=== PATIENT | male | born 1940 | race Caucasian/White ===

== ENCOUNTER 2016-10-26 16:59 | Inpatient (IN) | payer MEDICAID, OTHER ==
[2016-10-26] MEDS ORDERED: Sodium Chloride 0.9% 500 ML IV STA (17:28)
--- NOTE | 2016-10-26 17:33 | ED PDOC ---
Arrival/HPI - General Chief Complaint: GI Problem Time Seen by Provider: 10/26/16 17:19 Historian: Patient, Family - History of Present Illness Narrative History of Present Illness (Text): 10/26/16 17:22 Eric Abdullahi is a 75 year old, whose past medical history includes hypertension and hyperlipidemia, who presents to the Emergency department, accompanied by his family member, with complains of vomiting for the past few days. Family member reports patient has been vomiting everything he eats and also has diarrhea with dark green stool. Patient also notes feeling drowsiness. Patient denies shortness of breath, abdominal pain, headache, fever, chills cough, diaphoresis, jaw pain, back pain, lower extremity pain/swelling, or other complaints. PMD: Dr. Nilesh Farfan Time/Duration: Other (a few days) Symptom Onset: Gradual Symptom Course: Unchanged Modifying Factors (Text): Patient vomits everything he eats Context: Home Associated Symptoms (Text): dark green stool and drowsiness Past Medical History - Provider Review Nursing Documentation Reviewed: Yes - Cardiac Hx Cardiac Disorders: Yes Hx Hypertension: Yes - Endocrine/Metabolic Hx Endocrine Disorders: Yes Hx Diabetes Mellitus Type 2: Yes - Musculoskeletal/Rheumatological Hx Gout: Yes - Genitourinary/Gynecological Hx Prostate Problems: Yes - Psychiatric Hx Substance Use: No - Surgical History Hx Appendectomy: Yes Hx Orthopedic Surgery: Yes Family/Social History - Physician Review Nursing Documentation Reviewed: Yes Family/Social History: Unknown Family HX Smoking Status: Never Smoked Hx Alcohol Use: No Hx Substance Use: No Allergies/Home Meds Allergies/Adverse Reactions: Allergies No Known Allergies Allergy (Verified 10/26/16 17:13) Home Medications: Home Meds Medication Instructions Recorded Confirmed Allopurinol [Zyloprim] 100 mg PO DAILY 10/26/16 10/26/16 Alogliptin Wallace/Metformin HCl 1 each PO DAILY 10/26/16 10/26/16 [Alogliptin-Metformin 12.5-1000] Aspirin [Adult Low Dose Aspirin EC] 81 mg PO DAILY 10/26/16 10/26/16 Atorvastatin [Lipitor] 40 mg PO DAILY 10/26/16 10/26/16 Empagliflozin [Jardiance] 25 mg PO DAILY 10/26/16 10/26/16 Ergocalciferol (Vitamin D2) 50,000 unit PO QWK 10/26/16 10/26/16 [Vitamin D2] Glimepiride [Amaryl] 4 mg PO DAILY 10/26/16 10/26/16 HCTZ/Losartan Potassium [Hyzaar 1 tab PO DAILY 10/26/16 10/26/16 12.5 MG-50 MG] Memantine [Namenda] 10 mg PO DAILY 10/26/16 10/26/16 Edmond-3 Fatty Acids/Fish Oil [Fish 1,000 mg PO DAILY 10/26/16 10/26/16 Oil 1,000 mg Capsule] Tamsulosin [Flomax] 0.4 mg PO DAILY 10/26/16 10/26/16 Review of Systems - Physician Review All systems were reviewed & negative as marked: Yes - Review of Systems Constitutional: Other (drowsiness). absent: Fevers Respiratory: absent: SOB Cardiovascular: absent: Chest Pain Gastrointestinal: Stool Changes (dark green stool), Diarrhea, Nausea, Vomiting. absent: Abdominal Pain, Hematemesis Neurological: absent: Headache Physical Exam Vital Signs Temp Pulse Resp BP Pulse Ox 10/26/16 20:57 68 17 140/84 97 10/26/16 19:23 88 17 136/72 97 10/26/16 17:13 99 F 71 16 165/69 H 95 Temperature: Afebrile Blood Pressure: Hypertensive Pulse: Regular Respiratory Rate: Normal Appearance: Positive for: Well-Appearing, Non-Toxic, Comfortable Pain Distress: None Mental Status: Positive for: Alert and Oriented X 3 - Systems Exam Head: Present: Atraumatic, Normocephalic Pupils: Present: PERRL Extroacular Muscles: Present: EOMI Conjunctiva: Present: Normal Mouth: Present: Moist Mucous Membranes Neck: Present: Normal Range of Motion Respiratory/Chest: Present: Clear to Auscultation, Good Air Exchange. No: Respiratory Distress, Accessory Muscle Use Cardiovascular: Present: Regular Rate and Rhythm, Normal S1, S2. No: Murmurs Abdomen: Present: Tenderness (mild non-focal abdominal tenderness), Normal Bowel Sounds. No: Distention, Peritoneal Signs Rectal: Present: Other (brown stool guaiac negative (-) [place] Belt: Criselda Yesika) Back: Present: Normal Inspection Upper Extremity: Present: Normal Inspection. No: Cyanosis, Edema Lower Extremity: Present: Normal Inspection. No: Edema Neurological: Present: GCS=15, CN II-XII Intact, Speech Normal Skin: Present: Warm, Dry, Normal Color. No: Rashes Psychiatric: Present: Alert, Oriented x 3, Normal Insight, Normal Concentration Medical Decision Making ED Course and Treatment: 10/26/16 17:22 Impression: 75 year old male with vomiting and dark stool diarrhea. Plan: -- EKG -- Chest X-ray -- Labs -- Urinalysis -- Protonix, Zofran, and Sodium Chloride -- Reassess and disposition Progress Notes:suspected gastro, r/o gi bleed. EKG: Ordered, reviewed, and independently interpreted the EKG. Rate : 73 BPM Rhythm : NSR Interpretation :right Bundle Branch Block. Comparison : No previous EKG for comparison. 10/26/16 19:42 Case discussed with request patient to start on Dextrose with bicarb drip Case also discussed with Dr. Cedeno who accepts patient to ICU. 10/26/16 20:31 pt with noted new onset renal failue, hyperkalemia, dextrose, insulin, calcium, bicarb given. pt reports has been making urine at home, garrett order placed. 10/26/16 20:32 - Lab Interpretations Lab Results: 10/26/16 18:05 10/26/16 18:05 Lab Results 10/26/16 18:05: Sodium 138, Potassium 6.8 H*, Chloride 97 L, Carbon Dioxide 14 L , Anion Gap 34 H, BUN 90 H, Creatinine 11.6 H*, Est GFR ( Amer) 5, Est GFR (Non-Af Amer) 4, Random Glucose 28 L*, Calcium 9.5, Total Bilirubin 0.5, AST 27, ALT 21, Alkaline Phosphatase 53, Lactate Dehydrogenase 369, Total Creatine Kinase 199, Troponin I 0.03, Total Protein 8.2, Albumin 4.7, Globulin 3.5, Albumin/Globulin Ratio 1.3, Amylase 208 H, Lipase 264 10/26/16 18:05: PT 11.3, INR 1.05, APTT 30.3 10/26/16 18:05: WBC 10.5, RBC 4.53, Hgb 12.2 L, Hct 37.0 L, MCV 81.7, MCH 26.9, MCHC 33.0, RDW 15.8 H, Plt Count 206, MPV 11.3 H, Gran % 81.4 H, Lymph % (Auto) 13.5 L, [place] % (Auto) 5.1, Eos % (Auto) 0.0 L, Baso % (Auto) 0.0, Gran # 8.54 H , Lymph # 1.4, [place] # 0.5, Eos # 0.0, Baso # 0.00 I have reviewed the lab results: Yes - RAD Interpretation Radiology Orders: 10/26/16 19:13 CXR [CHEST PORTABLE] [RAD] Stat - EKG Interpretation Interpreted by ED Physician: Yes Type: 12 lead EKG - Medication Orders Current Medication Orders: Acetaminophen (Tylenol 325mg Tab) 650 mg PO Q6H PRN PRN Reason: Pain, Mild (1-3) Last Admin: 10/27/16 09:00 Dose: 650 mg Re-Assess: MAR Pain/Vitals Document 10/27/16 10:00 MMA (Rec: 10/27/16 12:49 MMA [id number]) Pain Reassessment Is This A Pain ReAssessment? Yes Sleep Is patient sleeping during reassessment? Yes Pain Scale Used Pain Scale Used Laurita Allopurinol (Zyloprim) 100 mg PO DAILY [facility] Last Admin: 10/28/16 09:16 Dose: 100 mg Aspirin (Ecotrin) 81 mg PO DAILY [facility] Last Admin: 10/28/16 09:17 Dose: 81 mg Atorvastatin Calcium (Lipitor) 40 mg PO DAILY [facility] Last Admin: 10/28/16 09:16 Dose: 40 mg Ergocalciferol (Drisdol 50,000 Intl Units Cap) 1 cap PO QWK [facility] Last Admin: 10/28/16 09:17 Dose: 1 cap Heparin Sodium (Porcine) (Heparin) 5,000 units SC Q12 JET PRN Reason: Protocol Last Admin: 10/28/16 21:48 Dose: 5,000 units Sodium Chloride (Sodium Chloride 0.9%) 1,000 mls @ 150 mls/hr IV .[id number] [facility] Last Admin: 10/29/16 02:50 Dose: 150 mls/hr Insulin Human Lispro (Humalog Low) 0 units SC ACHS JET PRN Reason: Protocol Last Admin: 10/28/16 22:06 Dose: Not Given Non-Admin Reason: Blood Sugar Parameter Labetalol HCl (Trandate) 100 mg PO TID PRN PRN Reason: Systolic Blood Pressure Last Admin: 10/27/16 09:01 Dose: 100 mg Memantine (Namenda) 10 mg PO DAILY [facility] Last Admin: 10/28/16 09:17 Dose: 10 mg Odisb-3-Cozx Ethyl Esters (Lovaza) 1 gm PO DAILY [facility] Last Admin: 10/28/16 09:16 Dose: 1 gm Pantoprazole Sodium (Protonix Ec Tab) 40 mg PO 0600 [facility] Last Admin: 10/29/16 05:53 Dose: 40 mg Tamsulosin HCl (Flomax) 0.4 mg PO DAILY [facility] Last Admin: 10/28/16 09:16 Dose: 0.4 mg Discontinued Medications Calcium Gluconate (Calcium Gluconate Iv) 1,000 mg IVP ONCE ONE Stop: 10/26/16 18:50 Last Admin: 10/26/16 19:11 Dose: 1,000 mg Dextrose (Dextrose 50% Inj) 50 ml IVP STAT STA Stop: 10/26/16 18:49 Last Admin: 10/26/16 19:10 Dose: 50 ml Dextrose (Dextrose 50% Inj) 50 ml IVP STAT STA Stop: 10/26/16 19:07 Last Admin: 10/26/16 19:17 Dose: 50 ml Dextrose (Dextrose 50% Inj) 50 ml IVP ONCE ONE Stop: 10/26/16 23:23 Last Admin: 10/26/16 23:53 Dose: 50 ml Dextrose (Dextrose 50% Inj) 50 ml IVP ONCE ONE Stop: 10/27/16 02:25 Last Admin: 10/27/16 02:29 Dose: 50 ml Dextrose (Dextrose 50% Inj) 50 ml IVP ONCE ONE Stop: 10/27/16 06:05 Last Admin: 10/27/16 06:10 Dose: 50 ml Dextrose (Dextrose 50% Inj) 50 ml IVP ONCE ONE Stop: 10/27/16 09:45 Last Admin: 10/27/16 09:55 Dose: 50 ml Sodium Chloride (Sodium Chloride 0.9%) 500 mls @ 999 mls/hr IV .Q31M STA Stop: 10/26/16 17:58 Last Admin: 10/26/16 18:11 Dose: 999 mls/hr Sodium Bicarbonate 150 meq/ (Dextrose) 1,150 mls @ 75 mls/hr IV .[id number] [facility] Last Admin: 10/28/16 03:30 Dose: 75 mls/hr Sodium Chloride (Sodium Chloride 0.9%) 1,000 mls @ 100 mls/hr IV .Q10H [facility] Last Admin: 10/26/16 23:59 Dose: 100 mls/hr Dextrose/Sodium Chloride (Dextrose 5%/0.45% Ns 1000 Ml) 1,000 mls @ 100 mls/hr IV .Q10H [facility] Last Admin: 10/28/16 03:30 Dose: 100 mls/hr Magnesium Sulfate 2 gm/ Sodium (Chloride) 104 mls @ 102 mls/hr IVPB ONCE ONE Stop: 10/27/16 13:51 Last Admin: 10/27/16 13:36 Dose: 102 mls/hr Sodium Chloride (Sodium Chloride 0.9%) 1,000 mls @ 100 mls/hr IV .Q10H [facility] Insulin Human Regular (Humulin R) 5 units SC STAT STA Stop: 10/26/16 18:49 Last Admin: 10/26/16 19:11 Dose: 5 units Morphine Sulfate (Morphine) 0.5 mg IVP ONCE ONE Stop: 10/27/16 03:04 Last Admin: 10/27/16 03:15 Dose: 0.5 mg Re-Assess: [place] Pain Assessment Document 10/27/16 04:15 PD (Rec: 10/27/16 06:06 PD [id number]) Pain Reassessment Is this a pain reassessment? Yes Sleep Is patient sleeping during reassessment? Yes Ondansetron HCl (Zofran Inj) 4 mg IVP STAT STA Stop: 10/26/16 17:29 Last Admin: 10/26/16 18:10 Dose: 4 mg Pantoprazole Sodium (Protonix Inj) 40 mg IVP STAT STA Stop: 10/26/16 17:29 Last Admin: 10/26/16 18:10 Dose: 40 mg Pantoprazole Sodium (Protonix Ec Tab) 40 mg PO 0600 [facility] Pantoprazole Sodium (Protonix Inj) 40 mg IVP DAILY [facility] Last Admin: 10/28/16 09:15 Dose: 40 mg Sodium Bicarbonate (Sodium Bicarbonate (8.4%) 50 Meq Syringe) 50 meq IVP ONCE ONE Stop: 10/26/16 18:50 Last Admin: 10/26/16 19:16 Dose: 50 meq Sodium Polystyrene Sulfonate (Kayexalate Oral Susp) 30 gm PO STAT STA Stop: 10/26/16 20:38 Last Admin: 10/26/16 20:57 Dose: 30 gm - Scribe Statement The provider has reviewed the documentation as recorded by the Scribe 10/26/2016 Criselda Wangdua Provider Scribe Attestation: All medical record entries made by the Scribe were at my direction and personally dictated by me. I have reviewed the chart and agree that the record accurately reflects my personal performance of the history, physical exam, medical decision making, and the department course for this patient. I have also personally directed, reviewed, and agree with the discharge instructions and disposition. Disposition/Present on Arrival - Present on Arrival Any Indicators Present on Arrival: No History of DVT/PE: No History of Uncontrolled Diabetes: No Urinary Catheter: No History of Decub. Ulcer: No History Surgical Site Infection Following: None - Disposition Have Diagnosis and Disposition been Completed?: Yes Diagnosis: Renal failure, Hyperkalemia Disposition: HOSPITALIZED Disposition Time: 06:00 Condition: STABLE
[2016-10-26 18:27] LABS: GRAN # 8.54 (1.4-6.5); GRAN % 81.4 % (50.0-68.0); HEMOGLOBIN 12.2 gm/dL (14.0-18.0); LYMPH # 1.4 (1.2-3.4); LYMPH % 13.5 % (22.0-35.0); MEAN CELL VOLUME 81.7 fL (80.0-105.0); MEAN CORPUSCULAR HEMOGLOBIN 26.9 pg (25.0-35.0); MEAN PLATELET VOLUME 11.3 fl (7.0-11.0); MONO # 0.5 (0.1-0.6); MONO % 5.1 % (1.0-6.0); PLATELET COUNT 206 10^3/uL (120.0-450.0); RBC 4.53 10^6/uL (3.5-6.1); RED CELL DISTRIBUTION WIDTH 15.8 % (11.5-14.5); WHITE BLOOD COUNT 10.5 10^3/ul (4.5-11.0)
[2016-10-26 18:35] LABS: INR 1.05 (0.93-1.08); PARTIAL THROMBOPLASTIN TIME 30.3 Seconds (23.7-30.8); PROTHROMBIN TIME 11.3 Seconds (9.9-11.8)
[2016-10-26 18:39] LABS: ALB/GLOB RATIO 1.3 (1.1-1.8); ALBUMIN 4.7 g/dL (3.0-4.8); CALCIUM 9.5 mg/dL (8.4-10.5)
[2016-10-26] MEDS ORDERED: Dextrose 50% SYRINGE Inj (50 ml) IVP STA ×2 (18:48→19:06)
[2016-10-26] MEDS ORDERED: Insulin Regular 1 UNITS/0.01 ML ML SC STA (18:48)
[2016-10-26] MEDS ORDERED: Sodium Bicarbonate (8.4%) 50 Meq Syringe IVP ONE (18:49)
[2016-10-26 18:50] LABS: TROPONIN I 0.03 ng/mL
--- NOTE | 2016-10-26 20:27 | CP.PCM.HP ---
History of Present Illness - History of Present Illness History of Present Illness: 75 yo Male with pmhx of HTN, DM type 2, HLD, BPH presents for Past Patient History - Past Social History Smoking Status: Never Smoked - CARDIAC Hx Cardiac Disorders: Yes Hx Hypertension: Yes - ENDOCRINE/METABOLIC Hx Endocrine Disorders: Yes Hx Diabetes Mellitus Type 2: Yes - MUSCULOSKELETAL/RHEUMATOLOGICAL Hx Gout: Yes - GENITOURINARY/GYNECOLOGICAL Hx Prostate Problems: Yes - PSYCHIATRIC Hx Substance Use: No - SURGICAL HISTORY Hx Appendectomy: Yes Hx Orthopedic Surgery: Yes Meds Allergies/Adverse Reactions: Allergies Allergy/AdvReac Type Severity Reaction Status Date / Time No Known Allergies Allergy Verified 10/26/16 17:13 Results - Vital Signs Recent Vital Signs: Last Vital Signs Temp 99 F 10/26/16 17:13 Pulse 88 10/26/16 19:23 Resp 17 10/26/16 19:23 BP 136/72 10/26/16 19:23 Pulse Ox 97 10/26/16 19:23 - Labs Result Diagrams: 10/26/16 18:05 10/26/16 18:05
[2016-10-26 20:37] LABS: URINE APPEARANCE SLIGHT-CLOUDY (CLEAR); URINE BILIRUBIN NEGATIVE (NEGATIVE); URINE BLOOD LARGE (NEGATIVE); URINE COLOR YELLOW (YELLOW); URINE GLUCOSE (UA) 250 mg/dL (NEGATIVE); URINE LEUKOCYTE ESTERASE NEGATIVE Leu/uL (NEGATIVE); URINE NITRATE NEGATIVE (NEGATIVE); URINE PROTEIN 30 mg/dL (<30 mg/dL); URINE UROBILINOGEN 0.2 E.U./dL (<1 E.U./dL)
[2016-10-26] MEDS ORDERED: Sod Polystyrene Sulf 15 gm/60 ml Oral Susp PO STA (20:37)
[2016-10-26] MEDS: Sodium Bicarbonate 8.4% 150 MEQ in Dextrose 5% In Water 1,000 ML IV SCH (20:42)
[2016-10-26 21:02] LABS: URINE AMORPHOUS SEDIMENT FEW
[2016-10-26 21:19] LABS: CREATININE,RANDOM URINE 31 mg/dL
[2016-10-26 22:13] VITALS: BMI 29.6
[2016-10-26] MEDS ORDERED: Sodium Chloride 0.9% 1,000 ML IV SCH (23:16)
[2016-10-26] MEDS ORDERED: Dextrose 50% SYRINGE Inj (50 ml) IVP ONE (23:22)
[2016-10-27] MEDS ORDERED: Dextrose 50% SYRINGE Inj (50 ml) IVP ONE ×3 (02:24→09:44)
[2016-10-27] MEDS ORDERED: Morphine 2 mg/ml ISec IVP ONE (03:03)
[2016-10-27] MEDS ORDERED: Pantoprazole 40 mg EC Tab PO SCH (06:00)
--- NOTE | 2016-10-27 06:05 | CP.PCM.HP ---
History of Present Illness - History of Present Illness History of Present Illness: The patient is a 75 year old [place] man with a history of dementia, HTN and NIDDM who presents with several days of nausea, non-bloody, non-bilious vomiting and water diarrhea. In the ED he was found to have an elevated BUN and creatinine and hyperkalemia. He denies any previous history of chronic kidney disease, or recent urinary problems. He also denies any chest pain, SOB, abdominal pain or F/C. Present on Admission - Present on Admission Any Indicators Present on Admission: No Review of Systems - Review of Systems All systems: reviewed and no additional remarkable complaints except - Constitutional Constitutional: As Per HPI - EENT Eyes: As Per HPI Nose/Mouth/Throat: As Per HPI - Cardiovascular Cardiovascular: As Per HPI - Respiratory Respiratory: As Per HPI - Gastrointestinal Gastrointestinal: As Per HPI - Genitourinary Genitourinary: As Per HPI - Musculoskeletal Musculoskeletal: As Per HPI - Neurological Neurological: As Per HPI Past Patient History - Past Social History Smoking Status: Never Smoked - CARDIAC Hx Cardiac Disorders: Yes Hx Hypertension: Yes - ENDOCRINE/METABOLIC Hx Endocrine Disorders: Yes Hx Diabetes Mellitus Type 2: Yes - MUSCULOSKELETAL/RHEUMATOLOGICAL Hx Falls: Yes Hx Gout: Yes - GENITOURINARY/GYNECOLOGICAL Hx Prostate Problems: Yes - PSYCHIATRIC Hx Substance Use: No - SURGICAL HISTORY Hx Appendectomy: Yes Hx Orthopedic Surgery: Yes Meds Allergies/Adverse Reactions: Allergies Allergy/AdvReac Type Severity Reaction Status Date / Time No Known Allergies Allergy Verified 10/26/16 17:13 Physical Exam - Constitutional Appears: Well - Head Exam Head Exam: ATRAUMATIC, NORMAL INSPECTION, NORMOCEPHALIC - Eye Exam Eye Exam: EOMI, Normal appearance, PERRL - ENT Exam ENT Exam: Mucous Membranes Dry - Neck Exam Neck exam: Positive for: Normal Inspection - Respiratory Exam Respiratory Exam: Clear to Auscultation Bilateral, NORMAL BREATHING PATTERN - Cardiovascular Exam Cardiovascular Exam: REGULAR RHYTHM - Neurological Exam Neurological exam: Alert, CN II-XII Intact, Normal Gait, Oriented x3, Reflexes Normal Results - Vital Signs Recent Vital Signs: Last Vital Signs Temp 97.8 F 10/26/16 21:55 Pulse 64 10/27/16 06:00 Resp 20 10/27/16 06:00 BP 125/68 10/27/16 06:00 Pulse Ox 98 10/27/16 06:00 - Labs Result Diagrams: 10/27/16 05:30 10/27/16 05:30 Labs: Laboratory Results - last 24 hr 10/26/16 10/26/16 10/26/16 20:00 20:50 23:15 POC Glucose (mg/dL) 69 Urine Color Yellow Urine Appearance Slight-cloudy Urine pH 6.0 Ur Specific [place] 1.020 Urine Protein 30 H Urine Glucose (UA) 250 H Urine Ketones 15 H Urine Blood Large H Urine Nitrate Negative Urine Bilirubin Negative Urine Urobilinogen 0.2 Ur Leukocyte Esterase Negative Urine RBC 2 - 5 Urine WBC 2 - 5 Ur Epithelial Cells 1 - 3 Amorphous Sediment Few Ur Random Creatinine 31 Ur Random Sodium 125 Assessment & Plan - Assessment and Plan (Free Text) Assessment: A/P: The patient is a 75 year old [place] man with a history of dementia, HTN and NIDDM being admitted to the ICU for KAPIL, hyperkalemia and recurrent hypoglycemia. 1. KAPIL: -nephrology on board and rec's aggressive IVF's and bicarb drip -per nephrology, no acute indications to start HD -renally dose all meds -avoid nephrotoxic meds -strict I/O's 2. Hyperkalemia: -due to renal failure -treated already in the ED -continue to monitor closely 3. Recurrent Hypoglycemia: -likely due to oral hypoglycemic meds and renal failure -accu-checks Q2hrs -D51/2 NS IVF's 4. NIDDM: -hold oral hypoglycemics -low dose Lispro ISS 5. HTN: -PRN Hydralazine until pt can tolerate orals ' GI PPx: Protonix DVT PPx: SC Heparin
[2016-10-27] MEDS: Dextrose 5%/0.45% NS 1,000 ML IV SCH ×2 (06:07→18:30)
[2016-10-27 06:11] LABS: ALB/GLOB RATIO 1.3 (1.1-1.8); MAGNESIUM 1.4 mg/dL (1.7-2.2)
[2016-10-27 06:39] LABS: EOS % 0.1 % (1.5-5.0); GRAN # 5.53 (1.4-6.5); GRAN % 73.4 % (50.0-68.0); HEMOGLOBIN 11.3 gm/dL (14.0-18.0); LYMPH # 1.2 (1.2-3.4); MEAN CELL VOLUME 79.1 fL (80.0-105.0); MEAN CORPUSCULAR HGB CONC 32.8 g/dl (31.0-37.0); MEAN PLATELET VOLUME 11.5 fl (7.0-11.0); MONO # 0.8 (0.1-0.6); MONO % 10.5 % (1.0-6.0); PLATELET COUNT 188 10^3/uL (120.0-450.0); RBC 4.35 10^6/uL (3.5-6.1); RED CELL DISTRIBUTION WIDTH 15.3 % (11.5-14.5); WHITE BLOOD COUNT 7.5 10^3/ul (4.5-11.0)
[2016-10-27] MEDS: Insulin Lispro (humaLOG) LOW Coverage SC SCH ×4 (08:06→22:00)
[2016-10-27] MEDS: Omega-3-Acid Ethyl Esters 1 GM Cap PO SCH (09:00)
[2016-10-27] MEDS: Ergocalciferol 50,000 Intl Units Cap PO SCH (09:01)
--- NOTE | 2016-10-27 10:50 | CARD ---
APPROVED REPORT EKG Measurement Heart [id number] CT [id number] [id number] <Conclusion> Sinus rhythm with premature atrial complexes Right bundle branch block
--- NOTE | 2016-10-27 11:21 | CP.PCM.CON ---
Past Patient History - Past Social History Smoking Status: Never Smoked - CARDIAC Hx Cardiac Disorders: Yes Hx Hypertension: Yes - ENDOCRINE/METABOLIC Hx Endocrine Disorders: Yes Hx Diabetes Mellitus Type 2: Yes - MUSCULOSKELETAL/RHEUMATOLOGICAL Hx Falls: Yes Hx Gout: Yes - GENITOURINARY/GYNECOLOGICAL Hx Prostate Problems: Yes - PSYCHIATRIC Hx Substance Use: No - SURGICAL HISTORY Hx Appendectomy: Yes Hx Orthopedic Surgery: Yes Meds Allergies/Adverse Reactions: Allergies Allergy/AdvReac Type Severity Reaction Status Date / Time No Known Allergies Allergy Verified 10/26/16 17:13 - Medications Medications: Current Medications Acetaminophen (Tylenol 325mg Tab) 650 mg PO Q6H PRN PRN Reason: Pain, Mild (1-3) Last Admin: 10/27/16 09:00 Dose: 650 mg Allopurinol (Zyloprim) 100 mg PO DAILY [facility] Last Admin: 10/27/16 09:01 Dose: 100 mg Aspirin (Ecotrin) 81 mg PO DAILY [facility] Last Admin: 10/27/16 09:01 Dose: 81 mg Atorvastatin Calcium (Lipitor) 40 mg PO DAILY [facility] Last Admin: 10/27/16 09:01 Dose: 40 mg Ergocalciferol (Drisdol 50,000 Intl Units Cap) 1 cap PO QWK [facility] Last Admin: 10/27/16 09:01 Dose: 1 cap Heparin Sodium (Porcine) (Heparin) 5,000 units SC Q12 JET PRN Reason: Protocol Last Admin: 10/27/16 09:00 Dose: 5,000 units Sodium Bicarbonate 150 meq/ (Dextrose) 1,150 mls @ 75 mls/hr IV .[id number] [facility] Last Admin: 10/26/16 20:42 Dose: 75 mls/hr Dextrose/Sodium Chloride (Dextrose 5%/0.45% Ns 1000 Ml) 1,000 mls @ 100 mls/hr IV .Q10H [facility] Last Admin: 10/27/16 06:07 Dose: 100 mls/hr Insulin Human Lispro (Humalog Low) 0 units SC ACHS [facility] PRN Reason: Protocol Last Admin: 10/27/16 08:06 Dose: Not Given Labetalol HCl (Trandate) 100 mg PO TID PRN PRN Reason: Systolic Blood Pressure Last Admin: 10/27/16 09:01 Dose: 100 mg Memantine (Namenda) 10 mg PO DAILY [facility] Last Admin: 10/27/16 09:01 Dose: 10 mg Vviwm-4-Ujay Ethyl Esters (Lovaza) 1 gm PO DAILY [facility] Last Admin: 10/27/16 09:00 Dose: 1 gm Pantoprazole Sodium (Protonix Inj) 40 mg IVP DAILY [facility] Last Admin: 10/27/16 09:00 Dose: 40 mg Tamsulosin HCl (Flomax) 0.4 mg PO DAILY [facility] Last Admin: 10/27/16 09:00 Dose: 0.4 mg Results - Vital Signs Recent Vital Signs: Last Vital Signs Temp 97.8 F 10/26/16 21:55 Pulse 65 10/27/16 11:10 Resp 24 10/27/16 11:10 BP 107/65 10/27/16 11:00 Pulse Ox 99 10/27/16 11:10 - Labs Result Diagrams: 10/27/16 05:30 10/27/16 05:30 Labs: Laboratory Results - last 24 hr 10/26/16 10/26/16 10/26/16 20:00 20:50 23:15 WBC RBC Hgb Hct MCV MCH MCHC RDW Plt Count MPV Gran % Lymph % (Auto) [place] % (Auto) Eos % (Auto) Baso % (Auto) Gran # Lymph # [place] # Eos # Baso # Sodium Potassium Chloride Carbon Dioxide Anion Gap BUN Creatinine Est GFR ( Amer) Est GFR (Non-Af Amer) POC Glucose (mg/dL) 69 Random Glucose Calcium Phosphorus Magnesium Total Bilirubin AST ALT Alkaline Phosphatase Total Protein Albumin Globulin Albumin/Globulin Ratio Urine Color Yellow Urine Appearance Slight-cloudy Urine pH 6.0 Ur Specific [place] 1.020 Urine Protein 30 H Urine Glucose (UA) 250 H Urine Ketones 15 H Urine Blood Large H Urine Nitrate Negative Urine Bilirubin Negative Urine Urobilinogen 0.2 Ur Leukocyte Esterase Negative Urine RBC 2 - 5 Urine WBC 2 - 5 Ur Epithelial Cells 1 - 3 Amorphous Sediment Few Ur Random Creatinine 31 Ur Random Sodium 125 10/27/16 10/27/16 10/27/16 02:02 05:30 05:30 WBC 7.5 D RBC 4.35 Hgb 11.3 L Hct 34.4 L MCV 79.1 L MCH 26.0 MCHC 32.8 RDW 15.3 H Plt Count 188 MPV 11.5 H Gran % 73.4 H Lymph % (Auto) 16.0 L [place] % (Auto) 10.5 H Eos % (Auto) 0.1 L Baso % (Auto) 0.0 Gran # 5.53 Lymph # 1.2 Kimble # 0.8 H Eos # 0.0 Baso # 0.00 Sodium 140 Potassium 4.9 Chloride 97 L Carbon Dioxide 25 Anion Gap 23 H BUN 93 H Creatinine 10.5 H* Est GFR ( Amer) 6 Est GFR (Non-Af Amer) 5 POC Glucose (mg/dL) 71 Random Glucose 46 L* D Calcium 9.0 Phosphorus 6.3 H Magnesium 1.4 L Total Bilirubin 0.5 AST 24 ALT 19 Alkaline Phosphatase 44 Total Protein 7.1 Albumin 4.0 Globulin 3.2 Albumin/Globulin Ratio 1.3 Urine Color Urine Appearance Urine pH Ur Specific [place] Urine Protein Urine Glucose (UA) Urine Ketones Urine Blood Urine Nitrate Urine Bilirubin Urine Urobilinogen Ur Leukocyte Esterase Urine RBC Urine WBC Ur Epithelial Cells Amorphous Sediment Ur Random Creatinine Ur Random Sodium 10/27/16 10/27/16 10/27/16 06:01 07:35 09:41 WBC RBC Hgb Hct MCV MCH MCHC RDW Plt Count MPV Gran % Lymph % (Auto) [place] % (Auto) Eos % (Auto) Baso % (Auto) Gran # Lymph # [place] # Eos # Baso # Sodium Potassium Chloride Carbon Dioxide Anion Gap BUN Creatinine Est GFR ( Amer) Est GFR (Non-Af Amer) POC Glucose (mg/dL) 38 L* 116 H 46 L Random Glucose Calcium Phosphorus Magnesium Total Bilirubin AST ALT Alkaline Phosphatase Total Protein Albumin Globulin Albumin/Globulin Ratio Urine Color Urine Appearance Urine pH Ur Specific [place] Urine Protein Urine Glucose (UA) Urine Ketones Urine Blood Urine Nitrate Urine Bilirubin Urine Urobilinogen Ur Leukocyte Esterase Urine RBC Urine WBC Ur Epithelial Cells Amorphous Sediment Ur Random Creatinine Ur Random Sodium
--- NOTE | 2016-10-27 11:23 | CT ---
PROCEDURE: CT Abdomen and Pelvis without intravenous contrast HISTORY: r/o Kidney stone COMPARISON: None. TECHNIQUE: Without contrast. Contrast Dose: Radiation dose: Total exam DLP = 467 mGy-cm. This CT exam was performed using one or more of the following dose reduction techniques: Automated exposure control, adjustment of the mA and/or kV according to patient size, and/or use of iterative reconstruction technique. FINDINGS: LOWER THORAX: Minimal atelectasis right lung base LIVER: Unremarkable. No gross lesion or ductal dilatation. GALLBLADDER AND BILE DUCTS: Unremarkable. PANCREAS: Unremarkable. No gross lesion or ductal dilatation. SPLEEN: Unremarkable. ADRENALS: Unremarkable. No mass. KIDNEYS AND URETERS: Unremarkable. No hydronephrosis. No solid mass. VASCULATURE: Unremarkable. No aortic aneurysm. BOWEL: Unremarkable. No obstruction. No gross mural thickening. APPENDIX: Unremarkable. Normal appendix. PERITONEUM: Unremarkable. No free fluid. No free air. LYMPH NODES: Unremarkable. No enlarged lymph nodes. BLADDER: Unremarkable. REPRODUCTIVE: Unremarkable. BONES: No acute fracture. OTHER FINDINGS: None. IMPRESSION: No evidence of urolithiasis. No obstruction. No acute intra-abdominal findings
--- NOTE | 2016-10-27 12:14 | RAD ---
HISTORY: abd pain COMPARISON: 04/17/2014 FINDINGS: LUNGS: No active pulmonary disease. PLEURA: No significant pleural effusion identified, no pneumothorax apparent. CARDIOVASCULAR: Normal. OSSEOUS STRUCTURES: No significant abnormalities. VISUALIZED UPPER ABDOMEN: Normal. OTHER FINDINGS: Moderate aortic tortuosity IMPRESSION: No active disease.
[2016-10-27] MEDS: Sodium Bicarbonate 8.4% 150 MEQ in Dextrose 5% In Water 1,000 ML IV SCH (12:47)
[2016-10-27] MEDS ORDERED: Magnesium Sulfate 2 GM in Sodium Chloride 0.9% 100 ML IVPB ONE (12:50)
--- NOTE | 2016-10-27 14:01 | CP.PCM.PN ---
Subjective - Date & Time of Evaluation Date of Evaluation: 10/27/16 Time of Evaluation: 08:00 - Subjective Subjective: patient seen and examined with resident in ICU. Patient is alert, awake and oriented. Denies any chest pain, Shortness of breath. Denies any abdominal pain, nausea, vomiting. Denies any urinary symptoms. Has Murphy catheter in place. Denies any fevers, chills. Tolerating diet well. Review of Systems - Constitutional Constitutional: absent: Fever, Chills - EENT Eyes: absent: Blurred Vision Nose/Mouth/Throat: absent: Nasal Congestion - Cardiovascular Cardiovascular: absent: Chest Pain, Dyspnea - Respiratory Respiratory: absent: Cough, Dyspnea - Gastrointestinal Gastrointestinal: absent: Abdominal Pain, Nausea, Vomiting - Musculoskeletal Musculoskeletal: absent: Back Pain - Psychiatric Psychiatric: absent: Anxiety, Depression - Hematologic/Lymphatic Hematologic: absent: Easy Bleeding Objective - Vital Signs/Intake and Output Vital Signs (last 24 hours): Temp Pulse Resp BP Pulse Ox 97.8 F 66 20 123/56 L 97 10/26/16 21:55 10/27/16 13:00 10/27/16 13:00 10/27/16 13:00 10/27/16 13:00 - Medications Medications: Current Medications Acetaminophen (Tylenol 325mg Tab) 650 mg PO Q6H PRN PRN Reason: Pain, Mild (1-3) Last Admin: 10/27/16 09:00 Dose: 650 mg Allopurinol (Zyloprim) 100 mg PO DAILY [facility] Last Admin: 10/27/16 09:01 Dose: 100 mg Aspirin (Ecotrin) 81 mg PO DAILY [facility] Last Admin: 10/27/16 09:01 Dose: 81 mg Atorvastatin Calcium (Lipitor) 40 mg PO DAILY [facility] Last Admin: 10/27/16 09:01 Dose: 40 mg Ergocalciferol (Drisdol 50,000 Intl Units Cap) 1 cap PO QWK [facility] Last Admin: 10/27/16 09:01 Dose: 1 cap Heparin Sodium (Porcine) (Heparin) 5,000 units SC Q12 [facility] PRN Reason: Protocol Last Admin: 10/27/16 09:00 Dose: 5,000 units Sodium Bicarbonate 150 meq/ (Dextrose) 1,150 mls @ 75 mls/hr IV .[id number] [facility] Last Admin: 10/27/16 12:47 Dose: 75 mls/hr Dextrose/Sodium Chloride (Dextrose 5%/0.45% Ns 1000 Ml) 1,000 mls @ 100 mls/hr IV .Q10H [facility] Last Admin: 10/27/16 06:07 Dose: 100 mls/hr Insulin Human Lispro (Humalog Low) 0 units SC ACHS [facility] PRN Reason: Protocol Last Admin: 10/27/16 13:33 Dose: Not Given Labetalol HCl (Trandate) 100 mg PO TID PRN PRN Reason: Systolic Blood Pressure Last Admin: 10/27/16 09:01 Dose: 100 mg Memantine (Namenda) 10 mg PO DAILY [facility] Last Admin: 10/27/16 09:01 Dose: 10 mg Svvfd-4-Knpy Ethyl Esters (Lovaza) 1 gm PO DAILY [facility] Last Admin: 10/27/16 09:00 Dose: 1 gm Pantoprazole Sodium (Protonix Inj) 40 mg IVP DAILY [facility] Last Admin: 10/27/16 09:00 Dose: 40 mg Tamsulosin HCl (Flomax) 0.4 mg PO DAILY [facility] Last Admin: 10/27/16 09:00 Dose: 0.4 mg - Labs Labs: 10/27/16 05:30 10/27/16 05:30 PT 11.3 Seconds (9.9-11.8) 10/26/16 18:05 INR 1.05 (0.93-1.08) 10/26/16 18:05 APTT 30.3 Seconds (23.7-30.8) 10/26/16 18:05 - Constitutional Appears: Well, Non-toxic - Head Exam Head Exam: NORMAL INSPECTION - Eye Exam Eye Exam: Normal appearance - ENT Exam ENT Exam: Mucous Membranes Moist - Respiratory Exam Respiratory Exam: Clear to Ausculation Bilateral. absent: Rales - Cardiovascular Exam Cardiovascular Exam: REGULAR RHYTHM - GI/Abdominal Exam GI & Abdominal Exam: Soft, Normal Bowel Sounds. absent: Tenderness - Exam Additional comments: Murphy catheter in place with clear urine. - Extremities Exam Extremities Exam: absent: Pedal Edema - Back Exam Back Exam: absent: CVA tenderness (L), CVA tenderness (R) - Neurological Exam Neurological Exam: Alert - Psychiatric Exam Psychiatric exam: Normal Affect - Skin Skin Exam: Normal Color Assessment and Plan - Assessment and Plan (Free Text) Assessment: The patient is a 75 year old [place] man with a history of dementia, HTN and NIDDM being admitted with vomiting for the past 2 days. Patient was found to be in KAPIL, hyperkalemia and recurrent hypoglycemia.currently observed in ICU. 1. acute renal failure; creatinine is improving slowly. Most likely prerenal secondary to poor by mouth intake, nausea, vomiting. no indication for dialysis. Nephrology evaluation requested. Continue IV fluids. Repeat BMP today. 2. History of BPH; on Flomax. Currently has Murphy catheter in place. Strict input and output ordered. 3. Hyperkalemia: resolved. 4. Recurrent Hypoglycemia:D5 normal saline. Fingerstick is improving. 5. NIDDM:hold oral hypoglycemics 6. HTN: hold hydro-thiazide and losatan till renal function improves. on labetalol now. GI prophylaxis with protonix. DVT prophylaxis with SC heparin.
[2016-10-27 14:33] LABS: CALCIUM 8.6 mg/dL (8.4-10.5)
--- NOTE | 2016-10-27 16:10 | CP.PCM.PN ---
<HORACIO LOCKWOOD - Last Filed: 10/27/16 16:02> Subjective - Date & Time of Evaluation Date of Evaluation: 10/27/16 Time of Evaluation: 07:30 - Subjective Subjective: Horacio Lockwood DO PGY1 - ICU Progress Note Patient seen and examined at bedside. No acute events overnight. Patient is complaining of some pelvic pain whenever he feels urgency to urinate, despite having a garrett catheter in place. He denies any CP, SOB, F/C, N/V/D/C, abdominal pain. He is kiswahili speaking, but his is at bedside who speaks belarusian. Objective - Vital Signs/Intake and Output Vital Signs (last 24 hours): Temp Pulse Resp BP Pulse Ox 97.8 F 59 L 26 H 105/52 L 99 10/26/16 21:55 10/27/16 15:00 10/27/16 15:00 10/27/16 15:00 10/27/16 15:00 - Medications Medications: Current Medications Acetaminophen (Tylenol 325mg Tab) 650 mg PO Q6H PRN PRN Reason: Pain, Mild (1-3) Last Admin: 10/27/16 09:00 Dose: 650 mg Allopurinol (Zyloprim) 100 mg PO DAILY [facility] Last Admin: 10/27/16 09:01 Dose: 100 mg Aspirin (Ecotrin) 81 mg PO DAILY [facility] Last Admin: 10/27/16 09:01 Dose: 81 mg Atorvastatin Calcium (Lipitor) 40 mg PO DAILY [facility] Last Admin: 10/27/16 09:01 Dose: 40 mg Ergocalciferol (Drisdol 50,000 Intl Units Cap) 1 cap PO QWK [facility] Last Admin: 10/27/16 09:01 Dose: 1 cap Heparin Sodium (Porcine) (Heparin) 5,000 units SC Q12 [facility] PRN Reason: Protocol Last Admin: 10/27/16 09:00 Dose: 5,000 units Sodium Bicarbonate 150 meq/ (Dextrose) 1,150 mls @ 75 mls/hr IV .[id number] [facility] Last Admin: 10/27/16 12:47 Dose: 75 mls/hr Dextrose/Sodium Chloride (Dextrose 5%/0.45% Ns 1000 Ml) 1,000 mls @ 100 mls/hr IV .Q10H [facility] Last Admin: 10/27/16 06:07 Dose: 100 mls/hr Insulin Human Lispro (Humalog Low) 0 units SC ACHS [facility] PRN Reason: Protocol Last Admin: 10/27/16 13:33 Dose: Not Given Labetalol HCl (Trandate) 100 mg PO TID PRN PRN Reason: Systolic Blood Pressure Last Admin: 10/27/16 09:01 Dose: 100 mg Memantine (Namenda) 10 mg PO DAILY [facility] Last Admin: 10/27/16 09:01 Dose: 10 mg Oyrlu-9-Ipcp Ethyl Esters (Lovaza) 1 gm PO DAILY [facility] Last Admin: 10/27/16 09:00 Dose: 1 gm Pantoprazole Sodium (Protonix Inj) 40 mg IVP DAILY [facility] Last Admin: 10/27/16 09:00 Dose: 40 mg Tamsulosin HCl (Flomax) 0.4 mg PO DAILY [facility] Last Admin: 10/27/16 09:00 Dose: 0.4 mg - Labs Labs: 10/27/16 05:30 10/27/16 14:20 PT 11.3 Seconds (9.9-11.8) 10/26/16 18:05 INR 1.05 (0.93-1.08) 10/26/16 18:05 APTT 30.3 Seconds (23.7-30.8) 10/26/16 18:05 - Constitutional Appears: Non-toxic, No Acute Distress - Head Exam Head Exam: ATRAUMATIC, NORMOCEPHALIC - Eye Exam Eye Exam: EOMI, Normal appearance - ENT Exam ENT Exam: Mucous Membranes Moist - Neck Exam Neck Exam: Normal Inspection. absent: Lymphadenopathy, Meningismus - Respiratory Exam Respiratory Exam: Clear to Ausculation Bilateral. absent: Rales, Rhonchi, Wheezes - Cardiovascular Exam Cardiovascular Exam: RRR, +S1, +S2 - GI/Abdominal Exam GI & Abdominal Exam: Distended, Soft. absent: Tenderness - Exam Additional comments: Garrett catheter in place. - Extremities Exam Extremities Exam: absent: Calf Tenderness, Pedal Edema - Back Exam Back Exam: absent: CVA tenderness (L), CVA tenderness (R) - Neurological Exam Neurological Exam: Alert, Awake, Oriented x3 - Psychiatric Exam Psychiatric exam: Normal Affect, Normal Mood Assessment and Plan - Assessment and Plan (Free Text) Assessment: The patient is a 75 year old Turkmen man with a history of dementia, HTN and NIDDM admitted to the ICU for KAPIL, hyperkalemia and recurrent hypoglycemia. Neuro: - AAO x 3; stable - H/o dementia, on home Memantine Pulm: - Lungs CTA on exam - CXR no active disease - Maintain SAO2 > 94% CV: - EKG: sinus rhythm with premature atrial contractions and RBBB - Trop negative - Maintain MAP > 65 - H/o HTN, on labetalol 100mg TID - D5 1/2NS @150 GI: - CT abd/pel: no evidence of urolithiasis or obstruction, no acute intra- abdominal findings Endo: - NIDDM, on oral hypoglycemics at home - Labile blood glucose, repeatedly dropped and given D50 ampules, currently stable, but dropping quickly. Patient is NPO, on oral hypoglycemics at home, in the setting of KAPIL, likely not cleared well, so half life likely prolonged. - Q1 accuchecks - On D5 1/2NS @150 - Maintain euglycemia Renal: - KAPIL, Cr improving, 11.6 on admission, currently 9.9. - Strict I & O, garrett catheter in place - H/o BPH, on Flomax, likely cause of pain - On D5 1/2NS @150 - Monitor electrolytes - Hyperkalemia resolved - Tyshawno (Dr. Christy Michel) on consult, all recs appreciated ID: - Currently afebrile, no leukocytosis - Continue to monitor GI/DVT ppx: - Lovenox and protonix Patient seen and discussed with attending <Whit ARRINGTON,Stacy H - Last Filed: 10/27/16 17:16> Objective - Vital Signs/Intake and Output Vital Signs (last 24 hours): Temp Pulse Resp BP Pulse Ox 97.8 F 58 L 18 109/61 100 10/26/16 21:55 10/27/16 16:20 10/27/16 16:20 10/27/16 16:00 10/27/16 16:20 - Medications Medications: Current Medications Acetaminophen (Tylenol 325mg Tab) 650 mg PO Q6H PRN PRN Reason: Pain, Mild (1-3) Last Admin: 10/27/16 09:00 Dose: 650 mg Allopurinol (Zyloprim) 100 mg PO DAILY [facility] Last Admin: 10/27/16 09:01 Dose: 100 mg Aspirin (Ecotrin) 81 mg PO DAILY [facility] Last Admin: 10/27/16 09:01 Dose: 81 mg Atorvastatin Calcium (Lipitor) 40 mg PO DAILY [facility] Last Admin: 10/27/16 09:01 Dose: 40 mg Ergocalciferol (Drisdol 50,000 Intl Units Cap) 1 cap PO QWK [facility] Last Admin: 10/27/16 09:01 Dose: 1 cap Heparin Sodium (Porcine) (Heparin) 5,000 units SC Q12 [facility] PRN Reason: Protocol Last Admin: 10/27/16 09:00 Dose: 5,000 units Sodium Bicarbonate 150 meq/ (Dextrose) 1,150 mls @ 75 mls/hr IV .[id number] [facility] Last Admin: 10/27/16 12:47 Dose: 75 mls/hr Dextrose/Sodium Chloride (Dextrose 5%/0.45% Ns 1000 Ml) 1,000 mls @ 100 mls/hr IV .Q10H [facility] Last Admin: 10/27/16 06:07 Dose: 100 mls/hr Insulin Human Lispro (Humalog Low) 0 units SC ACHS [facility] PRN Reason: Protocol Last Admin: 10/27/16 13:33 Dose: Not Given Labetalol HCl (Trandate) 100 mg PO TID PRN PRN Reason: Systolic Blood Pressure Last Admin: 10/27/16 09:01 Dose: 100 mg Memantine (Namenda) 10 mg PO DAILY [facility] Last Admin: 10/27/16 09:01 Dose: 10 mg Gesdd-7-Eedo Ethyl Esters (Lovaza) 1 gm PO DAILY [facility] Last Admin: 10/27/16 09:00 Dose: 1 gm Pantoprazole Sodium (Protonix Inj) 40 mg IVP DAILY [facility] Last Admin: 10/27/16 09:00 Dose: 40 mg Tamsulosin HCl (Flomax) 0.4 mg PO DAILY [facility] Last Admin: 10/27/16 09:00 Dose: 0.4 mg - Labs Labs: 10/27/16 05:30 10/27/16 14:20 PT 11.3 Seconds (9.9-11.8) 10/26/16 18:05 INR 1.05 (0.93-1.08) 10/26/16 18:05 APTT 30.3 Seconds (23.7-30.8) 10/26/16 18:05 Attending/Attestation - Attestation I have personally seen and examined this patient.: Yes I have fully participated in the care of the patient.: Yes I have reviewed all pertinent clinical information, including history, physical exam and plan: Yes Notes (Text): 10/27/16 17:14 75 y/o M admitted overnight due to Uremia with KAPIL 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 No hydro or Pyelo noted. Urine output improved on Saline and Bicarbonate drip. Can change to 1/2 NS or NS once Bicarbonate > 20. No other signs of infection currently, Does have some burning urination could be from Garrett placement. Will monitor. HTn controlled. DM on RISS to keep BS 140-180. dvt p cc time 65 min
[2016-10-28] MEDS: Dextrose 5%/0.45% NS 1,000 ML IV SCH (03:30)
[2016-10-28] MEDS: Sodium Bicarbonate 8.4% 150 MEQ in Dextrose 5% In Water 1,000 ML IV SCH (03:30)
[2016-10-28 05:45] LABS: BASO # 0.01 K/mm3 (0.0-2.0); BASO % 0.2 % (0.0-3.0); EOS # 0.2 (0.0-0.7); EOS % 2.7 % (1.5-5.0); GRAN # 3.34 (1.4-6.5); GRAN % 59.5 % (50.0-68.0); HEMOGLOBIN 11.6 gm/dL (14.0-18.0); LYMPH # 1.4 (1.2-3.4); LYMPH % 25.3 % (22.0-35.0); MEAN CELL VOLUME 78.3 fL (80.0-105.0); MEAN CORPUSCULAR HEMOGLOBIN 26.5 pg (25.0-35.0); MEAN CORPUSCULAR HGB CONC 33.8 g/dl (31.0-37.0); MEAN PLATELET VOLUME 10.9 fl (7.0-11.0); MONO # 0.7 (0.1-0.6); MONO % 12.3 % (1.0-6.0); PLATELET COUNT 163 10^3/uL (120.0-450.0); RBC 4.38 10^6/uL (3.5-6.1); WHITE BLOOD COUNT 5.6 10^3/ul (4.5-11.0)
[2016-10-28 05:51] LABS: ALB/GLOB RATIO 1.1 (1.1-1.8); ALBUMIN 3.7 g/dL (3.0-4.8); CALCIUM 8.2 mg/dL (8.4-10.5)
[2016-10-28] MEDS: Insulin Lispro (humaLOG) LOW Coverage SC SCH ×4 (09:15→22:06)
[2016-10-28] MEDS: Omega-3-Acid Ethyl Esters 1 GM Cap PO SCH (09:16)
[2016-10-28] MEDS: Ergocalciferol 50,000 Intl Units Cap PO SCH (09:17)
[2016-10-28] MEDS ORDERED: Sodium Chloride 0.9% 1,000 ML IV SCH (12:30)
--- NOTE | 2016-10-28 12:39 | CP.PCM.PN ---
<MANDIETERELLKLEBER - Last Filed: 10/28/16 12:26> Subjective - Date & Time of Evaluation Date of Evaluation: 10/28/16 Time of Evaluation: 07:30 - Subjective Subjective: Horacio Alvarez DO PGY1 - ICU Progress Note Patient seen and examined at bedside. No acute events reported overnight. Patient is no longer complaining of burning associated with urination. Continues to have good urinary output. Denies abdominal pain, back pain, F/C, N/ V/D. Has not had a BM yet. Objective - Vital Signs/Intake and Output Vital Signs (last 24 hours): Temp Pulse Resp BP Pulse Ox 98 F 70 16 127/64 100 10/28/16 04:00 10/28/16 10:00 10/28/16 10:00 10/28/16 10:00 10/28/16 10:00 Intake and Output: 10/28/16 10/28/16 06:59 18:59 Intake Total 2400 Output Total 2500 Balance -100 - Medications Medications: Current Medications Acetaminophen (Tylenol 325mg Tab) 650 mg PO Q6H PRN PRN Reason: Pain, Mild (1-3) Last Admin: 10/27/16 09:00 Dose: 650 mg Allopurinol (Zyloprim) 100 mg PO DAILY [facility] Last Admin: 10/28/16 09:16 Dose: 100 mg Aspirin (Ecotrin) 81 mg PO DAILY [facility] Last Admin: 10/28/16 09:17 Dose: 81 mg Atorvastatin Calcium (Lipitor) 40 mg PO DAILY [facility] Last Admin: 10/28/16 09:16 Dose: 40 mg Ergocalciferol (Drisdol 50,000 Intl Units Cap) 1 cap PO QWK [facility] Last Admin: 10/28/16 09:17 Dose: 1 cap Heparin Sodium (Porcine) (Heparin) 5,000 units SC Q12 [facility] PRN Reason: Protocol Last Admin: 10/28/16 09:16 Dose: 5,000 units Sodium Chloride (Sodium Chloride 0.9%) 1,000 mls @ 100 mls/hr IV .Q10H [facility] Insulin Human Lispro (Humalog Low) 0 units SC ACHS [facility] PRN Reason: Protocol Last Admin: 10/28/16 12:02 Dose: 3 units Labetalol HCl (Trandate) 100 mg PO TID PRN PRN Reason: Systolic Blood Pressure Last Admin: 10/27/16 09:01 Dose: 100 mg Memantine (Namenda) 10 mg PO DAILY [facility] Last Admin: 10/28/16 09:17 Dose: 10 mg Ewitg-0-Tqgt Ethyl Esters (Lovaza) 1 gm PO DAILY [facility] Last Admin: 10/28/16 09:16 Dose: 1 gm Pantoprazole Sodium (Protonix Inj) 40 mg IVP DAILY [facility] Last Admin: 10/28/16 09:15 Dose: 40 mg Tamsulosin HCl (Flomax) 0.4 mg PO DAILY [facility] Last Admin: 10/28/16 09:16 Dose: 0.4 mg - Labs Labs: 10/28/16 05:15 10/28/16 05:15 PT 11.3 Seconds (9.9-11.8) 10/26/16 18:05 INR 1.05 (0.93-1.08) 10/26/16 18:05 APTT 30.3 Seconds (23.7-30.8) 10/26/16 18:05 - Constitutional Appears: Non-toxic, No Acute Distress - Head Exam Head Exam: ATRAUMATIC, NORMOCEPHALIC - Eye Exam Eye Exam: EOMI, Normal appearance - ENT Exam ENT Exam: Mucous Membranes Moist, Normal Exam - Neck Exam Neck Exam: Normal Inspection. absent: Lymphadenopathy, Meningismus - Respiratory Exam Respiratory Exam: Clear to Ausculation Bilateral. absent: Rales, Rhonchi, Wheezes - Cardiovascular Exam Cardiovascular Exam: RRR, +S1, +S2 - GI/Abdominal Exam GI & Abdominal Exam: Distended, Soft. absent: Tenderness Additional comments: Hyporesonant, likely constipated - Extremities Exam Extremities Exam: absent: Calf Tenderness, Pedal Edema - Back Exam Back Exam: absent: CVA tenderness (L), CVA tenderness (R) - Neurological Exam Neurological Exam: Alert, Awake, Oriented x3 - Psychiatric Exam Psychiatric exam: Normal Affect, Normal Mood - Skin Skin Exam: Dry, Intact, Normal Color Assessment and Plan - Assessment and Plan (Free Text) Assessment: The patient is a 75 year old Jordanian man with a history of dementia, HTN and NIDDM admitted to the ICU for KAPIL, hyperkalemia and recurrent hypoglycemia. KAPIL resolving, hyperkalemia resolved, blood glucose stable. Will transfer today Neuro: - AAO x 3; stable - H/o dementia, on home Memantine. Patient denies history of "dementia" says memantine is just to help with his memory Pulm: - Lungs CTA on exam - CXR no active disease - Maintain SAO2 > 94% CV: - EKG: sinus rhythm with premature atrial contractions and RBBB - Trop negative - Maintain MAP > 65 - H/o HTN, on labetalol 100mg TID - NS @150 GI: - CT abd/pel: no evidence of urolithiasis or obstruction, no acute intra- abdominal findings - Ppx: Protonix Endo: - NIDDM, on oral hypoglycemics at home - Blood glucose now stable. Previously NPO, now on PO diet. - ACHS accuchecks - Switched from D5 1/2NS to NS@150 - Maintain euglycemia Renal: - KAPIL, Cr improving, 11.6 on admission, currently 8.4. Likely post-renal, with h /o BPH, but no stones, hydronephrosis, hydroureter noted. - Strict I & O, garrett catheter in place - H/o BPH, on Flomax, likely cause of pain - On NS @150 - Monitor electrolytes - Hyperkalemia resolved - Nephro (Dr. Christy Michel) on consult, all recs appreciated ID: - Currently afebrile, no leukocytosis - Continue to monitor GI/DVT ppx: - Heparin and protonix Patient seen and discussed with attending <Whit ARRINGTON,Stacy H - Last Filed: 10/28/16 15:29> Objective - Vital Signs/Intake and Output Vital Signs (last 24 hours): Temp Pulse Resp BP Pulse Ox 98 F 107 H 17 103/59 L 94 L 10/28/16 04:00 10/28/16 15:10 10/28/16 15:10 10/28/16 15:00 10/28/16 15:10 Intake and Output: 10/28/16 10/28/16 06:59 18:59 Intake Total 2400 Output Total 2500 Balance -100 - Medications Medications: Current Medications Acetaminophen (Tylenol 325mg Tab) 650 mg PO Q6H PRN PRN Reason: Pain, Mild (1-3) Last Admin: 10/27/16 09:00 Dose: 650 mg Allopurinol (Zyloprim) 100 mg PO DAILY [facility] Last Admin: 10/28/16 09:16 Dose: 100 mg Aspirin (Ecotrin) 81 mg PO DAILY [facility] Last Admin: 10/28/16 09:17 Dose: 81 mg Atorvastatin Calcium (Lipitor) 40 mg PO DAILY [facility] Last Admin: 10/28/16 09:16 Dose: 40 mg Ergocalciferol (Drisdol 50,000 Intl Units Cap) 1 cap PO QWK [facility] Last Admin: 10/28/16 09:17 Dose: 1 cap Heparin Sodium (Porcine) (Heparin) 5,000 units SC Q12 [facility] PRN Reason: Protocol Last Admin: 10/28/16 09:16 Dose: 5,000 units Sodium Chloride (Sodium Chloride 0.9%) 1,000 mls @ 150 mls/hr IV .Q6H40M [facility] Last Admin: 10/28/16 13:28 Dose: 150 mls/hr Insulin Human Lispro (Humalog Low) 0 units SC ACHS [facility] PRN Reason: Protocol Last Admin: 10/28/16 12:02 Dose: 3 units Labetalol HCl (Trandate) 100 mg PO TID PRN PRN Reason: Systolic Blood Pressure Last Admin: 10/27/16 09:01 Dose: 100 mg Memantine (Namenda) 10 mg PO DAILY [facility] Last Admin: 10/28/16 09:17 Dose: 10 mg Bvngl-2-Axdn Ethyl Esters (Lovaza) 1 gm PO DAILY [facility] Last Admin: 10/28/16 09:16 Dose: 1 gm Pantoprazole Sodium (Protonix Inj) 40 mg IVP DAILY [facility] Last Admin: 10/28/16 09:15 Dose: 40 mg Tamsulosin HCl (Flomax) 0.4 mg PO DAILY [facility] Last Admin: 10/28/16 09:16 Dose: 0.4 mg - Labs Labs: 10/28/16 05:15 10/28/16 05:15 PT 11.3 Seconds (9.9-11.8) 10/26/16 18:05 INR 1.05 (0.93-1.08) 10/26/16 18:05 APTT 30.3 Seconds (23.7-30.8) 10/26/16 18:05 Attending/Attestation - Attestation I have personally seen and examined this patient.: Yes I have fully participated in the care of the patient.: Yes I have reviewed all pertinent clinical information, including history, physical exam and plan: Yes Notes (Text): 10/28/16 15:26 75 y/o M w/ Acute Urinary retention and KAPIL After IV hydration, Uremia and GFR / Creatnine improving. BPH w/ Garrett in place w/ improved urine output . Urine cx pending. Nephrology following. Ni need for INS[employer]OR [employer] yet. PT/OT Out of bed to chair. dvt P cc time 55 min
[2016-10-28] MEDS: Sodium Chloride 0.9% 1,000 ML IV SCH ×2 (13:28→19:42)
--- NOTE | 2016-10-28 14:47 | CP.PCM.PN ---
Subjective - Date & Time of Evaluation Date of Evaluation: 10/28/16 Time of Evaluation: 07:30 - Subjective Subjective: patient seen and examined with resident in ICU. Patient is alert, awake and oriented. Denies any chest pain, Shortness of breath. Denies any abdominal pain, nausea, vomiting. Denies any urinary symptoms. Has Garrett catheter in place. made 4300ml of urine. Denies any fevers, chills. Tolerating diet well. Review of Systems - Constitutional Constitutional: absent: Fever, Chills - EENT Eyes: absent: Blurred Vision Nose/Mouth/Throat: absent: Nasal Congestion - Cardiovascular Cardiovascular: absent: Chest Pain - Respiratory Respiratory: absent: Cough, Dyspnea, Dyspnea on Exertion - Gastrointestinal Gastrointestinal: absent: Abdominal Pain, Nausea, Vomiting - Musculoskeletal Musculoskeletal: absent: Abnormal Gait - Neurological Neurological: absent: Abnormal Gait, Focal Weakness, Weakness - Psychiatric Psychiatric: absent: Anxiety, Depression - Hematologic/Lymphatic Hematologic: absent: Easy Bleeding, Easy Bruising Objective - Vital Signs/Intake and Output Vital Signs (last 24 hours): Temp Pulse Resp BP Pulse Ox 98 F 70 16 127/64 100 10/28/16 04:00 10/28/16 10:00 10/28/16 10:00 10/28/16 10:00 10/28/16 10:00 Intake and Output: 10/28/16 10/28/16 06:59 18:59 Intake Total 2400 Output Total 2500 Balance -100 - Medications Medications: Current Medications Acetaminophen (Tylenol 325mg Tab) 650 mg PO Q6H PRN PRN Reason: Pain, Mild (1-3) Last Admin: 10/27/16 09:00 Dose: 650 mg Allopurinol (Zyloprim) 100 mg PO DAILY [facility] Last Admin: 10/28/16 09:16 Dose: 100 mg Aspirin (Ecotrin) 81 mg PO DAILY [facility] Last Admin: 10/28/16 09:17 Dose: 81 mg Atorvastatin Calcium (Lipitor) 40 mg PO DAILY [facility] Last Admin: 10/28/16 09:16 Dose: 40 mg Ergocalciferol (Drisdol 50,000 Intl Units Cap) 1 cap PO QWK [facility] Last Admin: 10/28/16 09:17 Dose: 1 cap Heparin Sodium (Porcine) (Heparin) 5,000 units SC Q12 [facility] PRN Reason: Protocol Last Admin: 10/28/16 09:16 Dose: 5,000 units Sodium Chloride (Sodium Chloride 0.9%) 1,000 mls @ 150 mls/hr IV .Q6H40M [facility] Insulin Human Lispro (Humalog Low) 0 units SC ACHS [facility] PRN Reason: Protocol Last Admin: 10/28/16 12:02 Dose: 3 units Labetalol HCl (Trandate) 100 mg PO TID PRN PRN Reason: Systolic Blood Pressure Last Admin: 10/27/16 09:01 Dose: 100 mg Memantine (Namenda) 10 mg PO DAILY [facility] Last Admin: 10/28/16 09:17 Dose: 10 mg Bzktl-4-Nxwe Ethyl Esters (Lovaza) 1 gm PO DAILY [facility] Last Admin: 10/28/16 09:16 Dose: 1 gm Pantoprazole Sodium (Protonix Inj) 40 mg IVP DAILY [facility] Last Admin: 10/28/16 09:15 Dose: 40 mg Tamsulosin HCl (Flomax) 0.4 mg PO DAILY [facility] Last Admin: 10/28/16 09:16 Dose: 0.4 mg - Labs Labs: 10/28/16 05:15 10/28/16 05:15 PT 11.3 Seconds (9.9-11.8) 10/26/16 18:05 INR 1.05 (0.93-1.08) 10/26/16 18:05 APTT 30.3 Seconds (23.7-30.8) 10/26/16 18:05 - Constitutional Appears: Well, Non-toxic - Eye Exam Eye Exam: Normal appearance Pupil Exam: NORMAL ACCOMODATION - ENT Exam ENT Exam: Mucous Membranes Moist - Respiratory Exam Respiratory Exam: Clear to Ausculation Bilateral - Cardiovascular Exam Cardiovascular Exam: REGULAR RHYTHM - GI/Abdominal Exam GI & Abdominal Exam: Soft, Normal Bowel Sounds. absent: Tenderness - Exam Additional comments: garrett catheter in place - Extremities Exam Extremities Exam: absent: Pedal Edema - Back Exam Back Exam: absent: CVA tenderness (L), CVA tenderness (R) - Neurological Exam Neurological Exam: Alert - Psychiatric Exam Psychiatric exam: Normal Affect - Skin Skin Exam: Normal Color Assessment and Plan - Assessment and Plan (Free Text) Assessment: The patient is a 75 year old [place] man with a history of dementia, HTN and NIDDM being admitted with vomiting for the past 2 days. Patient was found to be in KAPIL, hyperkalemia and recurrent hypoglycemia.currently observed in ICU. 1. acute renal failure; creatinine improved from 11.6 to 8.4. Most likely prerenal secondary to poor by mouth intake, nausea, vomiting. no indication for dialysis. Nephrology evaluation appreciated. Continue IV fluids. Case discussed with nephrology in detail. 2. History of BPH; on Flomax. Currently has Garrett catheter in place. 3. Hyperkalemia: resolved. 4. Hypoglycemia:D5 normal saline. 5. NIDDM:hold oral hypoglycemics 6. HTN: hold hydro-thiazide and losatan till renal function improves. on labetalol now. GI prophylaxis with protonix. DVT prophylaxis with SC heparin.
--- NOTE | 2016-10-28 19:15 | US ---
PROCEDURE: Ultrasound of the Kidneys HISTORY: r/o hydronephrosis COMPARISON: CT abdomen pelvis 10/27/1016. TECHNIQUE: Sonogram of the kidneys. FINDINGS: RIGHT KIDNEY: Measures: 10 cm. Unremarkable in echogenicity. No shadowing renal stone, cyst, or hydronephrosis is identified. LEFT KIDNEY: Measures: 10.9 cm. Unremarkable in echogenicity. No shadowing renal stone, cyst, or hydronephrosis is identified. OTHER FINDINGS: None IMPRESSION: Unremarkable renal sonogram.
[2016-10-29] MEDS: Sodium Chloride 0.9% 1,000 ML IV SCH ×2 (02:50→10:16)
[2016-10-29] MEDS: Pantoprazole 40 mg EC Tab PO SCH (05:53)
[2016-10-29 07:42] LABS: BASO # 0.01 K/mm3 (0.0-2.0); BASO % 0.2 % (0.0-3.0); EOS # 0.2 (0.0-0.7); EOS % 3.5 % (1.5-5.0); GRAN # 3.03 (1.4-6.5); GRAN % 55.9 % (50.0-68.0); HEMOGLOBIN 11.9 gm/dL (14.0-18.0); LYMPH # 1.5 (1.2-3.4); LYMPH % 27.9 % (22.0-35.0); MEAN CORPUSCULAR HEMOGLOBIN 26.4 pg (25.0-35.0); MEAN CORPUSCULAR HGB CONC 33.1 g/dl (31.0-37.0); MEAN PLATELET VOLUME 11.5 fl (7.0-11.0); MONO # 0.7 (0.1-0.6); MONO % 12.5 % (1.0-6.0); PLATELET COUNT 193 10^3/uL (120.0-450.0); WHITE BLOOD COUNT 5.4 10^3/ul (4.5-11.0)
[2016-10-29 08:05] LABS: ALB/GLOB RATIO 1.2 (1.1-1.8); ALBUMIN 3.7 g/dL (3.0-4.8); CALCIUM 8.2 mg/dL (8.4-10.5)
[2016-10-29] MEDS: Insulin Lispro (humaLOG) LOW Coverage SC SCH ×4 (08:15→23:14)
[2016-10-29] MEDS: Omega-3-Acid Ethyl Esters 1 GM Cap PO SCH (10:15)
--- NOTE | 2016-10-29 12:41 | CP.PCM.PN ---
<Candice Arreola - Last Filed: 10/29/16 13:01> Subjective - Date & Time of Evaluation Date of Evaluation: 10/29/16 Time of Evaluation: 12:34 - Subjective Subjective: PT S&E at bedside with ICU resident. Patient seen and examined with resident in ICU. DANAE. Patient is awake and oriented. Patient Denies F/C, CP, SOB, N/V. Patient's admits to history of prostate enlargement (Patient is on flomax). Murphy is in place. Voiding trial initiated. 2300 cc urine overnight via Murphy. Patient is tolerating pain well. no complaints overnight. Objective - Vital Signs/Intake and Output Vital Signs (last 24 hours): Temp Pulse Resp BP Pulse Ox 98.5 F 83 20 117/68 94 L 10/29/16 00:00 10/29/16 06:00 10/29/16 00:00 10/29/16 00:00 10/29/16 00:00 Intake and Output: 10/29/16 10/29/16 06:59 18:59 Intake Total 1800 Output Total 800 2000 Balance 1000 -2000 - Medications Medications: Current Medications Acetaminophen (Tylenol 325mg Tab) 650 mg PO Q6H PRN PRN Reason: Pain, Mild (1-3) Last Admin: 10/27/16 09:00 Dose: 650 mg Allopurinol (Zyloprim) 100 mg PO DAILY [facility] Last Admin: 10/29/16 10:16 Dose: 100 mg Aspirin (Ecotrin) 81 mg PO DAILY [facility] Last Admin: 10/29/16 10:10 Dose: 81 mg Atorvastatin Calcium (Lipitor) 40 mg PO DAILY [facility] Last Admin: 10/29/16 10:14 Dose: 40 mg Docusate Sodium (Colace) 100 mg PO TID [facility] Ergocalciferol (Drisdol 50,000 Intl Units Cap) 1 cap PO QWK [facility] Last Admin: 10/28/16 09:17 Dose: 1 cap Heparin Sodium (Porcine) (Heparin) 5,000 units SC Q12 [facility] PRN Reason: Protocol Last Admin: 10/29/16 10:13 Dose: 5,000 units Sodium Chloride (Sodium Chloride 0.9%) 1,000 mls @ 100 mls/hr IV .Q10H [facility] Last Admin: 10/29/16 10:16 Dose: 100 mls/hr Insulin Human Lispro (Humalog Low) 0 units SC ACHS [facility] PRN Reason: Protocol Last Admin: 10/29/16 12:05 Dose: 2 units Labetalol HCl (Trandate) 100 mg PO TID PRN PRN Reason: Systolic Blood Pressure Last Admin: 10/27/16 09:01 Dose: 100 mg Memantine (Namenda) 10 mg PO DAILY [facility] Last Admin: 10/29/16 10:15 Dose: 10 mg Ffqau-6-Cycx Ethyl Esters (Lovaza) 1 gm PO DAILY [facility] Last Admin: 10/29/16 10:15 Dose: 1 gm Pantoprazole Sodium (Protonix Ec Tab) 40 mg PO 0600 [facility] Last Admin: 10/29/16 05:53 Dose: 40 mg Polyethylene Glycol (Miralax) 17 gm PO DAILY [facility] Tamsulosin HCl (Flomax) 0.4 mg PO DAILY [facility] Last Admin: 10/29/16 10:13 Dose: 0.4 mg - Labs Labs: 10/29/16 07:15 10/29/16 07:15 PT 11.3 Seconds (9.9-11.8) 10/26/16 18:05 INR 1.05 (0.93-1.08) 10/26/16 18:05 APTT 30.3 Seconds (23.7-30.8) 10/26/16 18:05 - Constitutional Appears: Non-toxic, No Acute Distress - Head Exam Head Exam: NORMAL INSPECTION - Eye Exam Eye Exam: EOMI, Normal appearance - ENT Exam ENT Exam: Mucous Membranes Moist - Neck Exam Neck Exam: Full ROM, Normal Inspection - Respiratory Exam Respiratory Exam: Clear to Ausculation Bilateral, NORMAL BREATHING PATTERN. absent: Accessory Muscle Use, Respiratory Distress - Cardiovascular Exam Cardiovascular Exam: REGULAR RHYTHM. absent: Bradycardia, Tachycardia - GI/Abdominal Exam GI & Abdominal Exam: Tenderness, Hypoactive Bowel Sounds - Neurological Exam Neurological Exam: Alert, Awake - Psychiatric Exam Psychiatric exam: Normal Affect, Normal Mood - Skin Skin Exam: Dry, Intact, Normal Color Assessment and Plan - Assessment and Plan (Free Text) Assessment: 75 year old [place] Citizen man with a history of dementia, HTN and NIDDM being admitted with vomiting for the past 2 days. Patient was found to be in KAPIL, hyperkalemia and recurrent hypoglycemia.currently observed in ICU. Patient transferred to the floor. Patient is stable with improving kidney function. Plan: 1. acute renal failure secondary to dehydration, vomiting. Resolving. Current Creatinine at 5.8 Nephrology evaluation appreciated. Continue IV fluids. Case discussed with nephrology in detail. NS 100cc/hr 2. History of BPH; on Flomax. Currently has Murphy catheter in place. Voiding trial today. Monitor I/Os. Strict I/Os 2300cc voided overnight 3. Hyperkalemia: resolved. 4. Hypoglycemia:D5 normal saline. Resolved - Discontinued D5 NS 5. NIDDM:c/w oral hypoglycemics 6. HTN: hold [place]-thiazide and Losartan till renal function improves. On labetalol now. GI PPX: Protonix DVT prophylaxis with SC Heparin <Laurel Lee - Last Filed: 10/29/16 17:08> Objective - Vital Signs/Intake and Output Vital Signs (last 24 hours): Temp Pulse Resp BP Pulse Ox 98.5 F 83 20 117/68 94 L 10/29/16 00:00 10/29/16 06:00 10/29/16 00:00 10/29/16 00:00 10/29/16 00:00 Intake and Output: 10/29/16 10/29/16 06:59 18:59 Intake Total 1800 720 Output Total 800 3000 Balance 1000 -2280 - Medications Medications: Current Medications Acetaminophen (Tylenol 325mg Tab) 650 mg PO Q6H PRN PRN Reason: Pain, Mild (1-3) Last Admin: 10/27/16 09:00 Dose: 650 mg Allopurinol (Zyloprim) 100 mg PO DAILY [facility] Last Admin: 10/29/16 10:16 Dose: 100 mg Aspirin (Ecotrin) 81 mg PO DAILY [facility] Last Admin: 10/29/16 10:10 Dose: 81 mg Atorvastatin Calcium (Lipitor) 40 mg PO DAILY [facility] Last Admin: 10/29/16 10:14 Dose: 40 mg Docusate Sodium (Colace) 100 mg PO TID [facility] Last Admin: 10/29/16 14:15 Dose: 100 mg Ergocalciferol (Drisdol 50,000 Intl Units Cap) 1 cap PO QWK [facility] Last Admin: 10/28/16 09:17 Dose: 1 cap Heparin Sodium (Porcine) (Heparin) 5,000 units SC Q12 [facility] PRN Reason: Protocol Last Admin: 10/29/16 10:13 Dose: 5,000 units Sodium Chloride (Sodium Chloride 0.9%) 1,000 mls @ 100 mls/hr IV .Q10H [facility] Last Admin: 10/29/16 10:16 Dose: 100 mls/hr Insulin Human Lispro (Humalog Low) 0 units SC ACHS [facility] PRN Reason: Protocol Last Admin: 10/29/16 12:05 Dose: 2 units Labetalol HCl (Trandate) 100 mg PO TID PRN PRN Reason: Systolic Blood Pressure Last Admin: 10/27/16 09:01 Dose: 100 mg Memantine (Namenda) 10 mg PO DAILY [facility] Last Admin: 10/29/16 10:15 Dose: 10 mg Ooxkq-8-Pves Ethyl Esters (Lovaza) 1 gm PO DAILY [facility] Last Admin: 10/29/16 10:15 Dose: 1 gm Pantoprazole Sodium (Protonix Ec Tab) 40 mg PO 0600 [facility] Last Admin: 10/29/16 05:53 Dose: 40 mg Polyethylene Glycol (Miralax) 17 gm PO DAILY [facility] Last Admin: 10/29/16 14:15 Dose: 17 gm Tamsulosin HCl (Flomax) 0.4 mg PO DAILY [facility] Last Admin: 10/29/16 10:13 Dose: 0.4 mg - Labs Labs: 10/29/16 07:15 10/29/16 07:15 PT 11.3 Seconds (9.9-11.8) 10/26/16 18:05 INR 1.05 (0.93-1.08) 10/26/16 18:05 APTT 30.3 Seconds (23.7-30.8) 10/26/16 18:05 Attending/Attestation - Attestation I have personally seen and examined this patient.: Yes I have fully participated in the care of the patient.: Yes I have reviewed all pertinent clinical information, including history, physical exam and plan: Yes Notes (Text): 10/29/16 17:06 The patient is a 75 year old [place] Citizen man with a history of dementia, HTN and NIDDM being admitted with vomiting for the past 2 days. Patient was found to be in KAPIL, hyperkalemia and recurrent hypoglycemia.currently observed in ICU. 1. acute renal failure; creatinine improved from 11.6 to 5.8. Most likely prerenal secondary to poor by mouth intake, nausea, vomiting. Nephrology evaluation appreciated. Continue IV fluids. Case discussed with nephrology in detail. 2. History of BPH; on Flomax. Currently has Murphy catheter in place. Voiding trial today. 3. Hyperkalemia: resolved. 4. Hypoglycemia resolved. 5. NIDDM:hold oral hypoglycemics 6. HTN: on labetalol now. GI prophylaxis with protonix. DVT prophylaxis with SC heparin. upon discharge the patient will follow-up with PMD DR. Adolph Galloway. 10/29/16 17:07 10/29/16 17:07
--- NOTE | 2016-10-29 13:36 | CP.PCM.PN ---
Subjective - Date & Time of Evaluation Date of Evaluation: 10/29/16 Time of Evaluation: 13:27 - Subjective Subjective: Follow up Nephrology Consultation Note Assessment: Stable Non-oliguric severe Acute Kidney Injury (N17.9) likely due to acute tubular necrosis from pre-renal state and some contribution by BPH as well Hypoglycemia, Hyperkalemia, high anion gap metabolic acidosis Hyperphosphatemia (E83.39), HTN (I12.9) Obesity, DM, hx of BPH, dementia Plan No acute need for renal replacement therapy at this time. renal function improving with IVF Hypertension control with meds as ordered. Patient not on ACEI/ARB due to KAPIL Monitor Input/Output, daily weights and renal function with basic metabolic panel pt planned for voiding trial today. check urine protein/cr and albumin/cr Dose meds/antibiotics for reduced GFR. Avoid fleets enema/magnesium based laxatives. Avoid nephrotoxins/NSAIDs/ iodinated contrast (unless needed emergently) Glycemic control. continue to withhold metformin. Further work up for as per primary team Thanks for allowing me to participate in care of your patient. Will follow patient with you. Please call if any Qs. once pt planned for d/c, to f/up in office within 1 week. d/w primary team and family bedside. Dr Maxx Raza Office: [phone] Subjective: Noted events overnight. Patients feels okay. Denies chest pain, palpitation, shortness of breath, leg swelling. No urinary complaints but has garrett. reports constipation now Physical Examination: family bedside who also helped in language interpretation General Appearance: Comfortable, in no acute respiratory distress, co- operative. Vitals reviewed and noted as below Lungs: Normal respiratory rate/effort. Breath sounds bilateral equal and clear Heart: Normal rate. s1s2 normal. No rub or gallop. Extremities: no edema. Neurological: Patient is alert, awake and oriented to person, place and time. No focal deficit. Strength bilateral appropriate and equal Skin: Warm and dry. Normal turgor. No rash. Palpitation: Normal elasticity for age Abdomen: Abdomen is soft. Bowel sounds +. There is no abdominal tenderness, no guarding/rigidity or organomegaly : kidney or bladder not palpable. has garrett Labs/imaging reviewed. Past medical history, past surgical history, family history, social history, allergy reviewed Work up; UA: 30 protein large blood renal imaging unremarkable Objective - Vital Signs/Intake and Output Vital Signs (last 24 hours): Temp Pulse Resp BP Pulse Ox 98.5 F 83 20 117/68 94 L 10/29/16 00:00 10/29/16 06:00 10/29/16 00:00 10/29/16 00:00 10/29/16 00:00 Intake and Output: 10/29/16 10/29/16 06:59 18:59 Intake Total 1800 Output Total 800 2000 Balance 1000 -2000 - Medications Medications: Current Medications Acetaminophen (Tylenol 325mg Tab) 650 mg PO Q6H PRN PRN Reason: Pain, Mild (1-3) Last Admin: 10/27/16 09:00 Dose: 650 mg Allopurinol (Zyloprim) 100 mg PO DAILY [facility] Last Admin: 10/29/16 10:16 Dose: 100 mg Aspirin (Ecotrin) 81 mg PO DAILY [facility] Last Admin: 10/29/16 10:10 Dose: 81 mg Atorvastatin Calcium (Lipitor) 40 mg PO DAILY [facility] Last Admin: 10/29/16 10:14 Dose: 40 mg Docusate Sodium (Colace) 100 mg PO TID [facility] Ergocalciferol (Drisdol 50,000 Intl Units Cap) 1 cap PO QWK [facility] Last Admin: 10/28/16 09:17 Dose: 1 cap Heparin Sodium (Porcine) (Heparin) 5,000 units SC Q12 [facility] PRN Reason: Protocol Last Admin: 10/29/16 10:13 Dose: 5,000 units Sodium Chloride (Sodium Chloride 0.9%) 1,000 mls @ 100 mls/hr IV .Q10H [facility] Last Admin: 10/29/16 10:16 Dose: 100 mls/hr Insulin Human Lispro (Humalog Low) 0 units SC ACHS [facility] PRN Reason: Protocol Last Admin: 10/29/16 12:05 Dose: 2 units Labetalol HCl (Trandate) 100 mg PO TID PRN PRN Reason: Systolic Blood Pressure Last Admin: 10/27/16 09:01 Dose: 100 mg Memantine (Namenda) 10 mg PO DAILY [facility] Last Admin: 10/29/16 10:15 Dose: 10 mg Dsjon-6-Bedh Ethyl Esters (Lovaza) 1 gm PO DAILY [facility] Last Admin: 10/29/16 10:15 Dose: 1 gm Pantoprazole Sodium (Protonix Ec Tab) 40 mg PO 0600 [facility] Last Admin: 10/29/16 05:53 Dose: 40 mg Polyethylene Glycol (Miralax) 17 gm PO DAILY [facility] Tamsulosin HCl (Flomax) 0.4 mg PO DAILY [facility] Last Admin: 10/29/16 10:13 Dose: 0.4 mg - Labs Labs: 10/29/16 07:15 10/29/16 07:15 PT 11.3 Seconds (9.9-11.8) 10/26/16 18:05 INR 1.05 (0.93-1.08) 10/26/16 18:05 APTT 30.3 Seconds (23.7-30.8) 10/26/16 18:05
[2016-10-29] MEDS: POLYETHYLENE GLYCOL 3350 17 GM/Dose PACKET PO SCH (14:15)
[2016-10-30] MEDS: Sodium Chloride 0.9% 1,000 ML IV SCH ×2 (00:58→05:45)
[2016-10-30] MEDS: Pantoprazole 40 mg EC Tab PO SCH (05:41)
[2016-10-30 07:28] LABS: BASO # 0.01 K/mm3 (0.0-2.0); BASO % 0.2 % (0.0-3.0); EOS # 0.2 (0.0-0.7); EOS % 4.1 % (1.5-5.0); GRAN # 2.59 (1.4-6.5); HEMOGLOBIN 11.6 g/dL (14.0-18.0); LYMPH # 2.1 (1.2-3.4); LYMPH % 37.1 % (22.0-35.0); MEAN CELL VOLUME 79.7 fl (80.0-105.0); MEAN CORPUSCULAR HEMOGLOBIN 26.2 pg (25.0-35.0); MEAN CORPUSCULAR HGB CONC 32.9 g/dl (31.0-37.0); MEAN PLATELET VOLUME 11.2 fl (7.0-11.0); MONO # 0.7 (0.1-0.6); MONO % 12.6 % (1.0-6.0); PLATELET COUNT 188 10^3/uL (120.0-450.0); RBC 4.43 10^6/uL (3.5-6.1); RED CELL DISTRIBUTION WIDTH 14.6 % (11.5-14.5); WHITE BLOOD COUNT 5.6 10^3/ul (4.5-11.0)
[2016-10-30 07:35] VITALS: BP 158/79; PULSE 68; RESP 18; TEMP 98.8; O2SAT 96
[2016-10-30 07:44] LABS: ALB/GLOB RATIO 1.2 (1.1-1.8); ALBUMIN 3.8 g/dL (3.0-4.8); CALCIUM 8.8 mg/dL (8.4-10.5)
[2016-10-30] MEDS: Insulin Lispro (humaLOG) LOW Coverage SC SCH (07:44)
[2016-10-30] MEDS ORDERED: Potassium Chloride 20 mEq ER Tab PO ONE (09:25)
[2016-10-30] MEDS: POLYETHYLENE GLYCOL 3350 17 GM/Dose PACKET PO SCH (09:41)
[2016-10-30] MEDS: Omega-3-Acid Ethyl Esters 1 GM Cap PO SCH (09:41)
--- NOTE | 2016-10-30 10:55 | CP.PCM.DIS ---
<Candice Arreola - Last Filed: 10/30/16 17:22> Provider - Provider Date of Admission: 10/26/16 19:40 Attending physician: Laurel Lee MD Primary care physician: Adolph Galloway MD Consults: Dr. Cooper - nephrology consult for acute renal failure. Time Spent in preparation of Discharge (in minutes): 20 Hospital Course - Lab Results Lab Results: Micro Results 10/26/16 20:45 Nose MRSA Culture (Admit) - Final MRSA NOT DETECTED Most Recent Lab Values WBC 5.6 10^3/ul (4.5-11.0) 10/30/16 07:00 RBC 4.43 10^6/uL (3.5-6.1) 10/30/16 07:00 Hgb 11.6 g/dL (14.0-18.0) L 10/30/16 07:00 Hct 35.3 % (42.0-52.0) L 10/30/16 07:00 MCV 79.7 fl (80.0-105.0) L 10/30/16 07:00 MCH 26.2 pg (25.0-35.0) 10/30/16 07:00 MCHC 32.9 g/dl (31.0-37.0) 10/30/16 07:00 RDW 14.6 % (11.5-14.5) H 10/30/16 07:00 Plt Count 188 10^3/uL (120.0-450.0) 10/30/16 07:00 MPV 11.2 fl (7.0-11.0) H 10/30/16 07:00 Gran % 46.0 % (50.0-68.0) L 10/30/16 07:00 Lymph % (Auto) 37.1 % (22.0-35.0) H 10/30/16 07:00 [place] % (Auto) 12.6 % (1.0-6.0) H 10/30/16 07:00 Eos % (Auto) 4.1 % (1.5-5.0) 10/30/16 07:00 Baso % (Auto) 0.2 % (0.0-3.0) 10/30/16 07:00 Gran # 2.59 (1.4-6.5) 10/30/16 07:00 Lymph # 2.1 (1.2-3.4) 10/30/16 07:00 [place] # 0.7 (0.1-0.6) H 10/30/16 07:00 Eos # 0.2 (0.0-0.7) 10/30/16 07:00 Baso # 0.01 K/mm3 (0.0-2.0) 10/30/16 07:00 PT 11.3 Seconds (9.9-11.8) 10/26/16 18:05 INR 1.05 (0.93-1.08) 10/26/16 18:05 APTT 30.3 Seconds (23.7-30.8) 10/26/16 18:05 Sodium 138 mmol/L (132-148) 10/30/16 07:00 Potassium 3.5 mmol/L (3.6-5.0) L 10/30/16 07:00 Chloride 101 mmol/L (95-110) 10/30/16 07:00 Carbon Dioxide 27 mmol/L (21-33) 10/30/16 07:00 Anion Gap 14 (10-20) 10/30/16 07:00 BUN 44 mg/dL (7-21) H 10/30/16 07:00 Creatinine 3.7 mg/dL (0.5-1.4) H 10/30/16 07:00 Est GFR ( Amer) 19 10/30/16 07:00 Est GFR (Non-Af Amer) 16 10/30/16 07:00 POC Glucose (mg/dL) 147 mg/dL (65-110) H 10/30/16 07:35 Random Glucose 142 mg/dL (70-110) H 10/30/16 07:00 Calcium 8.8 mg/dL (8.4-10.5) 10/30/16 07:00 Phosphorus 6.3 mg/dL (2.5-4.5) H 10/27/16 05:30 Magnesium 1.4 mg/dL (1.7-2.2) L 10/27/16 05:30 Total Bilirubin 0.7 mg/dL (0.2-1.3) 10/30/16 07:00 AST 19 U/L (15-59) 10/30/16 07:00 ALT 22 U/L (7-56) 10/30/16 07:00 Alkaline Phosphatase 54 U/L (38-133) 10/30/16 07:00 Lactate Dehydrogenase 369 U/L (333-699) 10/26/16 18:05 Total Creatine Kinase 199 U/L (35-230) 10/26/16 18:05 Troponin I 0.03 ng/mL 10/26/16 18:05 Total Protein 7.0 g/dL (5.8-8.3) 10/30/16 07:00 Albumin 3.8 g/dL (3.0-4.8) 10/30/16 07:00 Globulin 3.3 gm/dL 10/30/16 07:00 Albumin/Globulin Ratio 1.2 (1.1-1.8) 10/30/16 07:00 Amylase 208 U/L (35-125) H 10/26/16 18:05 Lipase 264 U/L (23-300) 10/26/16 18:05 Urine Color Yellow (YELLOW) 10/26/16 20:00 Urine Appearance Slight-cloudy (CLEAR) 10/26/16 20:00 Urine pH 6.0 (4.7-8.0) 10/26/16 20:00 Ur Specific [place] 1.020 (1.005-1.035) 10/26/16 20:00 Urine Protein 30 mg/dL (<30 mg/dL) H 10/26/16 20:00 Urine Glucose (UA) 250 mg/dL (NEGATIVE) H 10/26/16 20:00 Urine Ketones 15 mg/dL (NEGATIVE) H 10/26/16 20:00 Urine Blood Large (NEGATIVE) H 10/26/16 20:00 Urine Nitrate Negative (NEGATIVE) 10/26/16 20:00 Urine Bilirubin Negative (NEGATIVE) 10/26/16 20:00 Urine Urobilinogen 0.2 E.U./dL (<1 E.U./dL) 10/26/16 20:00 Ur Leukocyte Esterase Negative Magno/uL (NEGATIVE) 10/26/16 20:00 Urine RBC 2 - 5 /hpf (0-2) 10/26/16 20:00 Urine WBC 2 - 5 /hpf (0-6) 10/26/16 20:00 Ur Epithelial Cells 1 - 3 /hpf (0-5) 10/26/16 20:00 Amorphous Sediment Few 10/26/16 20:00 Ur Random Creatinine 49 mg/dL 10/30/16 09:00 Ur Random Sodium 125 meq/L 10/26/16 20:50 - Hospital Course Hospital Course: patient is a 75 year old Burmese man with a history of dementia, HTN and NIDDM who presents with several days of nausea, non-bloody, non-bilious vomiting and water diarrhea. In the ED he was found to have an elevated BUN and creatinine and hyperkalemia. He denies any previous history of chronic kidney disease, or recent urinary problems. He also denies any chest pain, SOB, abdominal pain or F/C dr. Raza was consulted for nephrology and advised that Patient's renal function is improving with IVF. Patient is not on ACEI/ ARB because of KAPIL. Patient's I/Os were monitored throughout his stay. a voiding trial was placed on 10/29 where patient passed 100cc after unclamping. Murphy was Discontinued 10/30 in the morning. Patient was able to void on his own. Per nephrology. there is no acute need for renal replacement therapy. Medications were advised to be dosed for reduced GFR. Fleet enema and magnesium based laxatives were avoided. NSAIDs, iodinated contrasts were avoided unless emergently needed. History of BPH; on Flomax. Currently has Murphy catheter in place. Voiding trial today. Hyperkalemia: resolved. Hypoglycemia resolved. Patient has DM: monitor glucose levels which have raised above 200 HTN: placed on on labetalol Patient was seen to be stable enough for discharge. advised to maintain adequate fluid intake and to follow up with urologist and manager statistical programming after discharge within 1 week for f/u with renal function and to be studied for possible obstruction. - Date & Time of H&P Date of H&P: 10/30/16 Time of H&P: 10:55 Discharge Exam - Head Exam Head Exam: NORMAL INSPECTION - Eye Exam Eye Exam: EOMI, Normal appearance Pupil Exam: NORMAL ACCOMODATION - ENT Exam ENT Exam: Mucous Membranes Moist - Respiratory Exam Respiratory Exam: UNREMARKABLE. absent: Accessory Muscle Use, Respiratory Distress, Stridor - Cardiovascular Exam Cardiovascular Exam: REGULAR RHYTHM. absent: Bradycardia, Tachycardia - GI/Abdominal Exam GI & Abdominal Exam: Unremarkable - Extremities Exam Extremities exam: full ROM, normal inspection - Neurological Exam Neurological exam: Alert, Normal Gait, Oriented x3 - Psychiatric Exam Psychiatric exam: Normal Affect, Normal Mood - Skin Skin Exam: Dry, Intact, Normal Color, Warm Discharge Plan - Discharge Medications Prescriptions: amLODIPine [Norvasc] 5 mg PO DAILY #30 tab - Follow Up Plan Condition: STABLE Disposition: HOME/ ROUTINE Instructions: Acute Kidney Injury (DC), Renal Failure Diet (DC), Hyperkalemia ( DC), Hyperkalemia (GEN) Additional Instructions: 1. follow up with urologist in one week 2. follow up with manager statistical programming (Dr. Raza/Dr. Cooper) in one week 3. follow up with primary care doctor 4. return to ED if symptoms worsen. (ie: problems with urination, fever, chills , blood in urine) 5. discontinue jardiance, metformin, hctz/losartan until okayed by primary 6. take 5mg Norvasc POQD. discontinue if side effects are severe. Referrals: Adolph Galloway MD [Primary Care Provider] - <Laurel Lee - Last Filed: 10/30/16 17:51> Provider - Provider Date of Admission: 10/26/16 19:40 Attending physician: Laurel Lee MD Primary care physician: Adolph Galloway MD Hospital Course - Lab Results Lab Results: Micro Results 10/26/16 20:45 Nose MRSA Culture (Admit) - Final MRSA NOT DETECTED Most Recent Lab Values WBC 5.6 10^3/ul (4.5-11.0) 10/30/16 07:00 RBC 4.43 10^6/uL (3.5-6.1) 10/30/16 07:00 Hgb 11.6 g/dL (14.0-18.0) L 10/30/16 07:00 Hct 35.3 % (42.0-52.0) L 10/30/16 07:00 MCV 79.7 fl (80.0-105.0) L 10/30/16 07:00 MCH 26.2 pg (25.0-35.0) 10/30/16 07:00 MCHC 32.9 g/dl (31.0-37.0) 10/30/16 07:00 RDW 14.6 % (11.5-14.5) H 10/30/16 07:00 Plt Count 188 10^3/uL (120.0-450.0) 10/30/16 07:00 MPV 11.2 fl (7.0-11.0) H 10/30/16 07:00 Gran % 46.0 % (50.0-68.0) L 10/30/16 07:00 Lymph % (Auto) 37.1 % (22.0-35.0) H 10/30/16 07:00 [place] % (Auto) 12.6 % (1.0-6.0) H 10/30/16 07:00 Eos % (Auto) 4.1 % (1.5-5.0) 10/30/16 07:00 Baso % (Auto) 0.2 % (0.0-3.0) 10/30/16 07:00 Gran # 2.59 (1.4-6.5) 10/30/16 07:00 Lymph # 2.1 (1.2-3.4) 10/30/16 07:00 [place] # 0.7 (0.1-0.6) H 10/30/16 07:00 Eos # 0.2 (0.0-0.7) 10/30/16 07:00 Baso # 0.01 K/mm3 (0.0-2.0) 10/30/16 07:00 PT 11.3 Seconds (9.9-11.8) 10/26/16 18:05 INR 1.05 (0.93-1.08) 10/26/16 18:05 APTT 30.3 Seconds (23.7-30.8) 10/26/16 18:05 Sodium 138 mmol/L (132-148) 10/30/16 07:00 Potassium 3.5 mmol/L (3.6-5.0) L 10/30/16 07:00 Chloride 101 mmol/L (95-110) 10/30/16 07:00 Carbon Dioxide 27 mmol/L (21-33) 10/30/16 07:00 Anion Gap 14 (10-20) 10/30/16 07:00 BUN 44 mg/dL (7-21) H 10/30/16 07:00 Creatinine 3.7 mg/dL (0.5-1.4) H 10/30/16 07:00 Est GFR ( Amer) 19 10/30/16 07:00 Est GFR (Non-Af Amer) 16 10/30/16 07:00 POC Glucose (mg/dL) 147 mg/dL (65-110) H 10/30/16 07:35 Random Glucose 142 mg/dL (70-110) H 10/30/16 07:00 Calcium 8.8 mg/dL (8.4-10.5) 10/30/16 07:00 Phosphorus 6.3 mg/dL (2.5-4.5) H 10/27/16 05:30 Magnesium 1.4 mg/dL (1.7-2.2) L 10/27/16 05:30 Total Bilirubin 0.7 mg/dL (0.2-1.3) 10/30/16 07:00 AST 19 U/L (15-59) 10/30/16 07:00 ALT 22 U/L (7-56) 10/30/16 07:00 Alkaline Phosphatase 54 U/L (38-133) 10/30/16 07:00 Lactate Dehydrogenase 369 U/L (333-699) 10/26/16 18:05 Total Creatine Kinase 199 U/L (35-230) 10/26/16 18:05 Troponin I 0.03 ng/mL 10/26/16 18:05 Total Protein 7.0 g/dL (5.8-8.3) 10/30/16 07:00 Albumin 3.8 g/dL (3.0-4.8) 10/30/16 07:00 Globulin 3.3 gm/dL 10/30/16 07:00 Albumin/Globulin Ratio 1.2 (1.1-1.8) 10/30/16 07:00 Amylase 208 U/L (35-125) H 10/26/16 18:05 Lipase 264 U/L (23-300) 10/26/16 18:05 Urine Color Yellow (YELLOW) 10/26/16 20:00 Urine Appearance Slight-cloudy (CLEAR) 10/26/16 20:00 Urine pH 6.0 (4.7-8.0) 10/26/16 20:00 Ur Specific [place] 1.020 (1.005-1.035) 10/26/16 20:00 Urine Protein 30 mg/dL (<30 mg/dL) H 10/26/16 20:00 Urine Glucose (UA) 250 mg/dL (NEGATIVE) H 10/26/16 20:00 Urine Ketones 15 mg/dL (NEGATIVE) H 10/26/16 20:00 Urine Blood Large (NEGATIVE) H 10/26/16 20:00 Urine Nitrate Negative (NEGATIVE) 10/26/16 20:00 Urine Bilirubin Negative (NEGATIVE) 10/26/16 20:00 Urine Urobilinogen 0.2 E.U./dL (<1 E.U./dL) 10/26/16 20:00 Ur Leukocyte Esterase Negative Magno/uL (NEGATIVE) 10/26/16 20:00 Urine RBC 2 - 5 /hpf (0-2) 10/26/16 20:00 Urine WBC 2 - 5 /hpf (0-6) 10/26/16 20:00 Ur Epithelial Cells 1 - 3 /hpf (0-5) 10/26/16 20:00 Amorphous Sediment Few 10/26/16 20:00 Ur Random Creatinine 49 mg/dL 10/30/16 09:00 Ur Random Sodium 125 meq/L 10/26/16 20:50 Urine Microalbumin 87.3 mg/L (0.0-16.6) H 10/30/16 09:00 Attending/Attestation - Attestation I have personally seen and examined this patient.: Yes I have fully participated in the care of the patient.: Yes I have reviewed all pertinent clinical information, including history, physical exam and plan: Yes Notes (Text): 10/30/16 17:48 The patient is a 75 year old Burmese man with a history of dementia, HTN and NIDDM being admitted with vomiting for the past 2 days. Patient was found to be in KAPIL, hyperkalemia and recurrent hypoglycemia.currently observed in ICU. 1. acute renal failure; creatinine improved from 11.6 to 5.8. creatinine is 3.7 today. Nephrology evaluation appreciated. Follow up with DR. Cooper in 3 to 5 days for creatinine checkup. 2. History of BPH; on Flomax. Murphy catheter removed. diabetes; continue only amaryl. Metformin and sitagliptin on hold. HTN: Norvasc prescription given. hold hydrochlorothiazide/Cozaar combination today creatinine is stabilized. Advised to Follow-up with urology of choice. upon discharge the patient will follow-up with PMD DR. Adolph Galloway. diagnosis; Acute renal failure Diabetes Hypertension BPH 10/30/16 17:48
--- NOTE | 2016-10-30 11:37 | CP.PCM.PN ---
Subjective - Date & Time of Evaluation Date of Evaluation: 10/30/16 Time of Evaluation: 11:36 - Subjective Subjective: Follow up Nephrology Consultation Note Assessment: Stable Non-oliguric severe Acute Kidney Injury (N17.9) likely due to acute tubular necrosis from pre-renal state and some contribution by BPH as well Hypoglycemia, Hyperkalemia, high anion gap metabolic acidosis Hyperphosphatemia (E83.39), HTN (I12.9) Obesity, DM, hx of BPH, dementia Plan No acute need for renal replacement therapy at this time. renal function improving Hypertension control with meds as ordered. Patient not on ACEI/ARB due to KAPIL Monitor Input/Output, daily weights and renal function with basic metabolic panel pt planned for voiding trial today. 1 dose of KDUR today check urine protein/cr and albumin/cr Dose meds/antibiotics for reduced GFR. Avoid fleets enema/magnesium based laxatives. Avoid nephrotoxins/NSAIDs/ iodinated contrast (unless needed emergently) Glycemic control. continue to withhold metformin. Further work up for as per primary team Thanks for allowing me to participate in care of your patient. Will follow patient with you. Please call if any Qs. once pt planned for d/c, to f/up in office within 1 week. d/w primary team and family bedside. stable for d/c from renal perspective. Dr Maxx Raza Office: [phone] Subjective: Noted events overnight. Patients feels okay. Denies chest pain, palpitation, shortness of breath, leg swelling. No urinary complaints but has garrett. Physical Examination: family bedside who also helped in language interpretation General Appearance: Comfortable, in no acute respiratory distress, co- operative. Vitals reviewed and noted as below Lungs: Normal respiratory rate/effort. Breath sounds bilateral equal and clear Heart: Normal rate. s1s2 normal. No rub or gallop. Extremities: no edema. Neurological: Patient is alert, awake and oriented to person, place and time. No focal deficit. Strength bilateral appropriate and equal Skin: Warm and dry. Normal turgor. No rash. Palpitation: Normal elasticity for age Abdomen: Abdomen is soft. Bowel sounds +. There is no abdominal tenderness, no guarding/rigidity or organomegaly : kidney or bladder not palpable. has garrett Labs/imaging reviewed. Past medical history, past surgical history, family history, social history, allergy reviewed Work up; UA: 30 protein large blood renal imaging unremarkable Objective - Vital Signs/Intake and Output Vital Signs (last 24 hours): Temp Pulse Resp BP Pulse Ox 98.8 F 68 18 158/79 H 96 10/30/16 06:00 10/30/16 06:00 10/30/16 06:00 10/30/16 06:00 10/30/16 06:00 Intake and Output: 10/30/16 10/30/16 06:59 18:59 Intake Total 300 Output Total 2650 Balance -2350 - Medications Medications: Current Medications Acetaminophen (Tylenol 325mg Tab) 650 mg PO Q6H PRN PRN Reason: Pain, Mild (1-3) Last Admin: 10/27/16 09:00 Dose: 650 mg Allopurinol (Zyloprim) 100 mg PO DAILY [facility] Last Admin: 10/30/16 09:41 Dose: 100 mg Aspirin (Ecotrin) 81 mg PO DAILY [facility] Last Admin: 10/30/16 09:41 Dose: 81 mg Atorvastatin Calcium (Lipitor) 40 mg PO DAILY [facility] Last Admin: 10/30/16 09:41 Dose: 40 mg Docusate Sodium (Colace) 100 mg PO TID [facility] Last Admin: 10/30/16 09:41 Dose: 100 mg Ergocalciferol (Drisdol 50,000 Intl Units Cap) 1 cap PO QWK [facility] Last Admin: 10/28/16 09:17 Dose: 1 cap Heparin Sodium (Porcine) (Heparin) 5,000 units SC Q12 JET PRN Reason: Protocol Last Admin: 10/30/16 09:40 Dose: 5,000 units Sodium Chloride (Sodium Chloride 0.9%) 1,000 mls @ 100 mls/hr IV .Q10H [facility] Last Admin: 10/30/16 05:45 Dose: 100 mls/hr Insulin Human Lispro (Humalog Low) 0 units SC ACHS [facility] PRN Reason: Protocol Last Admin: 10/30/16 07:44 Dose: Not Given Labetalol HCl (Trandate) 100 mg PO TID PRN PRN Reason: Systolic Blood Pressure Last Admin: 10/27/16 09:01 Dose: 100 mg Memantine (Namenda) 10 mg PO DAILY [facility] Last Admin: 10/30/16 09:41 Dose: 10 mg [id number] Ethyl Esters (Lovaza) 1 gm PO DAILY JET Last Admin: 10/30/16 09:41 Dose: 1 gm Pantoprazole Sodium (Protonix Ec Tab) 40 mg PO 0600 JET Last Admin: 10/30/16 05:41 Dose: 40 mg Polyethylene Glycol (Miralax) 17 gm PO DAILY JET Last Admin: 10/30/16 09:41 Dose: 17 gm Tamsulosin HCl (Flomax) 0.4 mg PO DAILY JET Last Admin: 10/30/16 09:41 Dose: 0.4 mg - Labs Labs: 10/30/16 07:00 10/30/16 07:00 PT 11.3 Seconds (9.9-11.8) 10/26/16 18:05 INR 1.05 (0.93-1.08) 10/26/16 18:05 APTT 30.3 Seconds (23.7-30.8) 10/26/16 18:05
== END 2016-10-30 12:59 | disposition home or self-care (01) | DRG 316 ==
LOC: ED 16:59 → ERH 19:40 → CCU 21:26 → 3RNO 10-28 19:24
PROVIDERS: ADMIT Internal Medicine; ATTEND Internal Medicine
DX: N17.0 Acute kidney failure with tubular necrosis (principal); E87.2 Acidosis; E11.649 Type 2 diabetes mellitus with hypoglycemia without coma; E87.5 Hyperkalemia; E86.0 Dehydration; F03.90 Unspecified dementia, unspecified severity, without behavioral disturbance, psychotic disturbance, mood disturbance, and anxiety; N40.1 Benign prostatic hyperplasia with lower urinary tract symptoms; R33.8 Other retention of urine; I10 Essential (primary) hypertension; M10.9 Gout, unspecified; E83.39 Other disorders of phosphorus metabolism; E66.9 Obesity, unspecified; Z68.30 Body mass index [BMI] 30.0-30.9, adult; Z79.84 Long term (current) use of oral hypoglycemic drugs; Z79.82 Long term (current) use of aspirin